=== PATIENT | female | born 1950 | race Caucasian/White ===

== ENCOUNTER → 2017-09-05 | Outpatient (CLI) | payer MEDICARE, BC ==
[2017-09-05 16:25] VITALS: BP 168/72; PULSE 72; RESP 16; TEMP 98.7; BMI 36.9
[2017-09-05 17:39] LABS: HCT 44.1 % (34.0-46.0); HGB 13.8 gm/dL (11.4-16.0); MCH 28.1 pg (25.0-35.0); MCHC 31.3 g/dL (31.0-37.0); Mean Platelet Volume 8.1; Platelet Count 182 k/uL (150-450); RDW 14.5 % (11.5-15.5)
[2017-09-05 17:53] LABS: ALT 52 U/L (9-52); AST 31 U/L (14-36); Albumin 4.7 g/dL (3.5-5.0); Alkaline Phosphatase 64 U/L (38-126); Anion Gap 12 mmol/L; Blood Urea Nitrogen 23 mg/dL (7-17); Calcium 9.6 mg/dL (8.4-10.2); Carbon Dioxide 27 mmol/L (22-30); Chloride 104 mmol/L (98-107); Cholesterol 145 mg/dL (<200); Glucose 98 mg/dL (74-99); HDL Cholesterol 50 mg/dL (40-60); LDL Cholesterol,Calculated 76 mg/dL (0-99); Potassium 4.2 mmol/L (3.5-5.1); Sodium 143 mmol/L (137-145); Total Bilirubin 0.5 mg/dL (0.2-1.3); Total Protein 7.4 g/dL (6.3-8.2); Triglycerides 97 mg/dL (<150)
[2017-09-06 01:18] LABS: Iron Saturation 15.5 (12.00-45.00)
[2017-09-06 01:26] LABS: Vitamin D 25 Hydroxy 44.4 ng/mL (30.0-100.0)
[2017-09-06 01:36] LABS: Folate, Serum 23.1 ng/mL
[2017-09-06 15:44] LABS: Hemoglobin A1C 6.5 % (4.0-6.0)
--- NOTE | 2017-10-22 22:24 | P.HPBAR ---
Bariatric H&P - History & Physicial H&P Date: 09/05/17 History & Physicial: Visit/CC: Bariatric evaluation Patient initial contact: Initial weight: Initial weight in pounds: Height: 5 ft 2 in Initial BMI: Last weight: Current weight: 91.626 kg Current weight in pounds: 202.00 Current BMI: 36.9 [place] body weight (based on NIH guidelines): 49.895 kg Excess body weight loss: The patient is a 67 year-old F who presents for Bariatric Assessment. DATE OF SERVICE: 09/05/2017 REASON FOR CONSULTATION: Initial bariatric evaluation. HISTORY OF PRESENT ILLNESS: Swati Sánchez is a 67-year-old female who comes in with morbid obesity. She has had diabetes for over 10 years. She comes in with problems of esophageal reflux disease. She has been enrolled medical supervised weight loss for over 7 consecutive months. She is looking into the gastric bypass to address her reflux including diabetes. No reports of upper endoscopy or chronic diarrhea. Incidentally, she is also due for colonoscopy with history of polyps. Last colonoscopy was 10 years ago. Her lowest weight was 192 pounds with weight loss. She has tried Weight Watchers back in 1980s and lost at least 40 pounds. She reports chronic constipation. No reports of Crohn's or ulcerative colitis in herself or her family. She denies any food ALLERGIES. She does report grandchildren who have wheat including milk ALLERGIES. No family personal history of stomach or esophageal cancer. She has rheumatoid arthritis in her sister. Separately, she reports having shortness sleep apnea. She denies any smoking. No personal family history of blood clots. She reports chronic panniculitis where she uses medicated powders with minimal improvement. Separately she also reports chronic lower back pain, hip pain as well as knee pain as a result for her morbid obesity. PAST MEDICAL HISTORY: 1. Morbid obesity. 2. Body mass index of 36.9. 3. Osteoarthritis of the knees. 4. Osteoarthritis of the hips. 5. Osteoarthritis of the lower back. 6. Obstructive sleep apnea. 7. Hypertensive heart disease. 8. Diabetes type 2. 9. Gastroesophageal reflux disease. 10. Hypothyroidism. 11. Anxiety. 12. Panniculitis. PAST SURGICAL HISTORY: 1. Cholecystectomy. 2. Hysterectomy. 3. Orthopedic surgery. 4. Tonsillectomy. 5. Bilateral carpal tunnel. 6. Bilateral plantar fasciitis. HOME MEDICATIONS: 1. Zanaflex. 2. Janumet. 3. Co-Q 10 4. Aldactone. 5. Crestor. 6. AcipHex. 7. Potassium. 8. Nystatin powder. 9. Multivitamin. 10. Synthroid. 11. Ativan. 12. Hydrocortisone cream. 13. Vitamin D. 14. Aspirin. 15. Vitamin C. ALLERGIES: 1. Doxycycline. 2. Diclofenac 3. Morphine. 4. Prednisone. 5. Misoprostol 6. Irbesartan. SOCIAL HISTORY: No active tobacco use. FAMILY HISTORY: No family history of ulcerative colitis disease or Crohn's disease. Family history of morbid obesity. No lupus in the family. No reports of stomach or esophageal cancer. Family history of diabetes type 2. REVIEW OF ORGAN SYSTEMS: CONSTITUTIONAL: At height of 5 feet 2 inches, his ideal body weight is 135 pounds. She comes in with 202 pounds. Body mass index is 36.9. He is 67 pounds overweight. HEENT: Denies any active troubles with vision or hearing. No troubles with swallowing. ENDOCRINE: Has diabetes. Has hypothyroidism. CARDIOVASCULAR: No reports of palpitations or heart attacks or chest pain. RESPIRATORY: Has daytime somnolence. No asthma. Has sleep apnea. GI: Denies any bright red blood per rectum. No diarrhea. Has constipation. MUSCULOSKELETAL: Has lower back pain and joint pain. Has osteoarthritis of the knees. History of bilateral lower extremity edema. NEURO: No headaches. No seizure disorders. PSYCH: No depression or suicidal ideation. Has anxiety. RHEUMATOLOGIC: No lupus. No rheumatoid arthritis. HEMATOLOGIC: Denies any abnormal bleeding or bruising. No personal history of DVTs. SKIN: No rash. No skin cancer. PHYSICAL EXAM: VITAL SIGNS: Height 5 foot 2 inches, weight 202 pounds. BMI 36.9 Vital Signs Temp 98.7 F 09/05/17 16:22 Pulse 72 09/05/17 16:22 Resp 16 09/05/17 16:22 BP 168/72 09/05/17 16:22 Pulse Ox GENERAL: Well-developed in no acute distress. HEENT: No scleral icterus. Extraocular movements grossly intact. Hears conversational speech. No nasal drainage. NECK: Supple without lymphadenopathy. CHEST: Nonlabored respirations with equal bilateral excursions. CARDIOVASCULAR: Regular rate and regular rhythm. Distal 2+ pulses. ABDOMEN: Obese, soft, nontender, nondistended. MUSCULOSKELETAL: No clubbing, cyanosis or edema. Gross strength 5/5 distal lower extremities. NEURO: No focal or lateralizing signs. Cranial nerves 2 through 12 grossly within normal limits. PSYCH: Appropriate affect. Alert and oriented to person, place and time. SKIN: Good skin turgor. Well perfused. ASSESSMENT: 1. Morbid obesity. 2. Body mass index of 36.9. 3. Osteoarthritis of the knees. 4. Osteoarthritis of the hips. 5. Osteoarthritis of the lower back. 6. Obstructive sleep apnea. 7. Hypertensive heart disease. 8. Diabetes type 2. 9. Gastroesophageal reflux disease. 10. Hypothyroidism. 11. Anxiety. 12. Panniculitis. PLAN: 1. Surgical options including a band, gastric bypass, sleeve gastrectomy were described in detail. Alternatives such as gastric balloon including duodenal switch were described. 2. The [place] bariatric surgical collaborative data and outcomes calculator were described with surgical options. 3. Recommend a bariatric metabolic panel to evaluate for micro- including macronutrient deficiencies. 4. For history of daytime somnolence, recommend evaluation and treatment for sleep apnea. 5. Dietary surveillance and counseling was reviewed, I have asked increased protein intake to at least 50 grams daily. 6. Will need cardiac risk assessment. 7. Recommend medical risk assessment. 8. Psych assessment per insurance guidelines. 9. Follow up upon completion of upper endoscopy. 10. Recommend 12-lead EKG with family history of hypertensive heart disease. 11. Recommend upper endoscopy. Thank you for this consultation. ADDENDUM: Laboratory Last Values WBC 7.0 k/uL (3.8-10.6) 09/05/17 17:09 RBC 4.90 m/uL (3.80-5.40) 09/05/17 17:09 Hgb 13.8 gm/dL (11.4-16.0) 09/05/17 17:09 Hct 44.1 % (34.0-46.0) 09/05/17 17:09 MCV 90.0 fL (80.0-100.0) 09/05/17 17:09 MCH 28.1 pg (25.0-35.0) 09/05/17 17:09 MCHC 31.3 g/dL (31.0-37.0) 09/05/17 17:09 RDW 14.5 % (11.5-15.5) 09/05/17 17:09 Plt Count 182 k/uL (150-450) 09/05/17 17:09 Sodium 143 mmol/L (137-145) 09/05/17 17:09 Potassium 4.2 mmol/L (3.5-5.1) 09/05/17 17:09 Chloride 104 mmol/L (98-107) 09/05/17 17:09 Carbon Dioxide 27 mmol/L (22-30) 09/05/17 17:09 Anion Gap 12 mmol/L 09/05/17 17:09 BUN 23 mg/dL (7-17) H 09/05/17 17:09 Creatinine 1.10 mg/dL (0.52-1.04) H 09/05/17 17:09 Est GFR (MDRD) Af Amer >60 (>60 ml/min/1.73 sqM) 09/05/17 17:09 Est GFR (MDRD) Non-Af 50 (>60 ml/min/1.73 sqM) 09/05/17 17:09 Glucose 98 mg/dL (74-99) 09/05/17 17:[address] Glu mg/dL 140 09/05/17 17:09 Hemoglobin A1c 6.5 % (4.0-6.0) H 09/05/17 17:09 Calcium 9.6 mg/dL (8.4-10.2) 09/05/17 17:09 Iron 53 ug/dL (50-170) 09/05/17 17:09 TIBC 342 ug/dL (228-460) 09/05/17 17:09 Iron Saturation 15.50 (12.00-45.00) 09/05/17 17:09 Ferritin 95.8 ng/mL (10.0-291.0) 09/05/17 17:09 Total Bilirubin 0.5 mg/dL (0.2-1.3) 09/05/17 17:09 AST 31 U/L (14-36) 09/05/17 17:09 ALT 52 U/L (9-52) 09/05/17 17:09 Alkaline Phosphatase 64 U/L (38-126) 09/05/17 17:09 Total Protein 7.4 g/dL (6.3-8.2) 09/05/17 17:09 Albumin 4.7 g/dL (3.5-5.0) 09/05/17 17:09 Triglycerides 97 mg/dL (<150) 09/05/17 17:09 Cholesterol 145 mg/dL (<200) 09/05/17 17:09 LDL Cholesterol, Calc 76 mg/dL (0-99) 09/05/17 17:09 HDL Cholesterol 50 mg/dL (40-60) 09/05/17 17:09 Vitamin B1 73 ug/L (38-122) 09/05/17 17:09 Vitamin B12 561.0 pg/mL (200.0-944.0) 09/05/17 17:09 Vitamin D 25-Hydroxy 44.4 ng/mL (30.0-100.0) 09/05/17 17:09 Folate 23.1 ng/mL 09/05/17 17:09 TSH 0.286 mIU/L (0.465-4.680) L 09/05/17 17:09 Past Medical History Past Medical History: Diabetes Mellitus, Hypertension, Sleep Apnea/CPAP/BIPAP, Thyroid Disorder Additional Past Medical History / Comment(s): arthritis History of Any Multi-Drug Resistant Organisms: None Reported Past Surgical History: Cholecystectomy, Hysterectomy, Orthopedic Surgery, Tonsillectomy Additional Past Surgical History / Comment(s): eileen carpal tunnel,. eileen foot plantar fascitis Past Anesthesia/Blood Transfusion Reactions: No Reported Reaction Smoking Status: Never smoker - Past Family History Mother Family Medical History: Thyroid Disorder Father Family Medical History: Diabetes Mellitus, Hypertension Additional Family Medical History / Comment(s): enlarged heart, [facility] [place] Surgical - Exam Vital Signs Temp Pulse Resp BP 98.7 F 72 16 168/72 09/05/17 16:22 09/05/17 16:22 09/05/17 16:22 09/05/17 16:22 Results - Labs 09/05/17 17:09 09/05/17 17:09 Bariatric Checklist Checklist: Plan: Checklist: EGD: 1. Hiatal hernia: 2. H. Pylori: HgbA1c: Vitamin D: Smoking: Never smoker Primary care physician referral: Avani Davila Psychiatry clearance: Cardiology clearance: Sleep study: Diet journal: VTE risk score: VTE risk level: Rehab needs at discharge:
== END | disposition home or self-care (01) ==
LOC: BARWHC3 15:49
PROVIDERS: ATTEND Surgery Plastic and Reconstructive Surgery
DX: Z48.815 Encounter for surgical aftercare following surgery on the digestive system (principal); E66.01 Morbid (severe) obesity due to excess calories; M17.0 Bilateral primary osteoarthritis of knee; M16.0 Bilateral primary osteoarthritis of hip; M47.816 Spondylosis without myelopathy or radiculopathy, lumbar region; G47.33 Obstructive sleep apnea (adult) (pediatric); I11.9 Hypertensive heart disease without heart failure; E11.9 Type 2 diabetes mellitus without complications; K21.9 Gastro-esophageal reflux disease without esophagitis; E03.9 Hypothyroidism, unspecified; F41.9 Anxiety disorder, unspecified; E89.1 Postprocedural hypoinsulinemia; D50.8 Other iron deficiency anemias; E44.0 Moderate protein-calorie malnutrition; E55.9 Vitamin D deficiency, unspecified; G47.30 Sleep apnea, unspecified; M79.3 Panniculitis, unspecified; Z68.36 Body mass index [BMI] 36.0-36.9, adult; Z88.1 Allergy status to other antibiotic agents; Z88.5 Allergy status to narcotic agent; Z88.8 Allergy status to other drugs, medicaments and biological substances; Z79.82 Long term (current) use of aspirin; Z79.51 Long term (current) use of inhaled steroids; Z79.899 Other long term (current) drug therapy; Z90.49 Acquired absence of other specified parts of digestive tract
CPT/HCPCS: 84425; 80061; 80053; 82607; 82728; 82746; 83540; 83550; 84443; 85027; 82306; 83036; 36415; G0463; 99211

== ENCOUNTER 2018-01-14 07:28 | Day surgery (SDC) | payer MEDICARE, BC ==
[2018-01-08 14:57] VITALS: BMI 33.6
[~2018-01-14 07:28] MED LIST: ALPRAZolam 0.5 MG TAB PO PRN; HEPARIN SODIUM,PORCINE 5,000 UNIT/ML 1 ML VIAL SQ ONE; LACTATED RINGERS 1,000 ML IV SCH; LIDOCAINE 1% 20 ML VIAL (10MG/ML) FOR IV START INTRADERMA PRN; MIDAZOLAM 2 MG/2 ML VIAL IV PRN; MORPHINE SULFATE 2 MG/ML SYRINGE IV PRN; ONDANSETRON ODT 4 MG TAB PO ONE; Pre Op ABX Message 1 EACH MISC MISCELLANE ONE; SCOPOLAMINE 1.5MG/72HR PATCH TRANSDERM ONE; fentaNYL (PF) 50 MCG/ML 2 ML AMP IV PRN
[2018-01-14] MEDS ORDERED: MORPHINE SULFATE 4 MG/0.8 ML SYRINGE (INJ) IV PRN (08:10)
[2018-01-14 08:37] LABS: Glucose,Whole Blood 122 mg/dL (75-99)
[2018-01-14 08:38] VITALS: RESP 16; TEMP 98.6
--- NOTE | 2018-01-14 08:38 | P.GSHP ---
History of Present Illness H&P Date: 01/14/18 Chief Complaint: Back lipoma This a 67-year-old female who presents today for excision of a back lipoma. Past Medical History Past Medical History: Diabetes Mellitus, Hypertension, Osteoarthritis (OA), Sleep Apnea/CPAP/BIPAP, Thyroid Disorder Additional Past Medical History / Comment(s): uses bpap machine History of Any Multi-Drug Resistant Organisms: None Reported Past Surgical History: Cholecystectomy, Hysterectomy, Orthopedic Surgery, Tonsillectomy Additional Past Surgical History / Comment(s): eileen carpal tunnel,. eileen foot plantar fascitis Past Anesthesia/Blood Transfusion Reactions: No Reported Reaction Smoking Status: Never smoker - Past Family History Mother Family Medical History: Thyroid Disorder Father Family Medical History: Diabetes Mellitus, Hypertension Additional Family Medical History / Comment(s): enlarged heart, Guillian [place]' Medications and Allergies Home Medications Medication Instructions Recorded Confirmed Type Ascorbic Acid [Vitamin C] 500 mg PO DAILY 09/05/17 01/08/18 History Aspirin [Adult Low Dose Aspirin EC] 81 mg PO DAILY 09/05/17 01/08/18 History Cholecalciferol (Vitamin D3) 2,000 unit PO DAILY 09/05/17 01/08/18 History [Vitamin D3] LORazepam [Ativan] 0.5 mg PO BID PRN 09/05/17 01/08/18 History Levothyroxine Sodium [Synthroid] 100 mcg PO DAILY 09/05/17 01/08/18 History Multivitamins, Thera [Multivitamin 1 tab PO DAILY 09/05/17 01/08/18 History (formulary)] RABEprazole SODIUM [Aciphex] 20 mg PO DAILY 09/05/17 01/08/18 History Rosuvastatin [Crestor] 10 mg PO DAILY 09/05/17 01/08/18 History Spironolactone [Aldactone] 12.5 mg PO DAILY 09/05/17 01/08/18 History Ubidecarenone [Co Q-10] 200 mg PO DAILY 09/05/17 01/08/18 History sitaGLIPtin PHOS/metFORMIN HCL 1 each PO DAILY 09/05/17 01/08/18 History [Janumet Xr 50-500 mg Tablet] L.acidoph,Paracasei, B.lactis 1 tab PO DAILY PRN 01/14/18 01/14/18 History [Probiotic] Allergies Allergy/AdvReac Type Severity Reaction Status Date / Time doxycycline Allergy Swelling Verified 01/14/18 08:09 irbesartan [From Avapro] Allergy Swelling Verified 01/14/18 08:09 diclofenac [From Arthrotec] AdvReac Swelling Verified 01/14/18 08:09 misoprostol [From Arthrotec] AdvReac Swelling Verified 01/14/18 08:09 morphine AdvReac Nausea & Verified 01/14/18 08:09 Vomiting prednisone AdvReac Rapid Verified 01/14/18 08:09 Heart Rate Surgical - Exam - General well developed, no distress - Eyes PERRL - ENT normal pinna - Neck no masses - Respiratory normal expansion - Cardiovascular Rhythm: regular - Abdomen Abdomen: soft, non tender - Integumentary 5 cm back lipoma located interrupted back near the patient's bra line Assessment and Plan Assessment: Back lipoma. We'll perform excision.
[2018-01-14] MEDS ORDERED: MIDAZOLAM 2 MG/2 ML VIAL ONE (09:02)
[2018-01-14] MEDS ORDERED: fentaNYL (PF) 50 MCG/ML 2 ML AMP ONE (09:02)
[2018-01-14] MEDS ORDERED: PROPOFOL 10 MG/ML 20 ML VIAL IV ONE (09:02)
[2018-01-14] MEDS ORDERED: BUPIVACAINE (PF) 0.25% 30 ML VIAL SQ ONE (09:16)
--- NOTE | 2018-01-14 09:40 | P.OP ---
Date of Procedure: 01/14/18 Preoperative Diagnosis: Back lipoma Postoperative Diagnosis: Back lipoma Procedure(s) Performed: Excision of back lipoma Anesthesia: MAC Surgeon: Helder Ferrara Estimated Blood Loss (ml): 5 Pathology: other (Back lipoma) Condition: stable Description of Procedure: Patient's placed on the operative table lateral position. She received IV sedation. Her back was prepped and draped usual sterile fashion. A skin incision was made over the lipoma after the skin was anesthetized 1% local Xylocaine. Using blunt and sharp dissection with cautery the lipoma was excised. The lipoma measured prostate 5 cm diameter. Lipoma was sent to pathology. This can was closed interrupted 3-0 Monocryl suture. Dermabond was applied.
[2018-01-14 10:10] VITALS: BP 137/73; PULSE 71
== END 2018-01-14 10:34 | disposition home or self-care (01) ==
LOC: OR 07:28
PROVIDERS: ATTEND Surgery
DX: D17.1 Benign lipomatous neoplasm of skin and subcutaneous tissue of trunk (principal); E11.9 Type 2 diabetes mellitus without complications; Z79.84 Long term (current) use of oral hypoglycemic drugs; I10 Essential (primary) hypertension; M19.90 Unspecified osteoarthritis, unspecified site; G47.33 Obstructive sleep apnea (adult) (pediatric); Z99.89 Dependence on other enabling machines and devices; E78.5 Hyperlipidemia, unspecified; E07.9 Disorder of thyroid, unspecified; Z79.82 Long term (current) use of aspirin; Z79.890 Hormone replacement therapy; Z79.899 Other long term (current) drug therapy; Z88.6 Allergy status to analgesic agent; Z88.1 Allergy status to other antibiotic agents; Z88.5 Allergy status to narcotic agent; Z88.8 Allergy status to other drugs, medicaments and biological substances
CPT/HCPCS: 88304; 11406; J2250; J1644; J3010; J2704

== ENCOUNTER → 2018-05-09 | Outpatient (CLI) | payer MEDICARE, BC ==
--- NOTE | 2018-05-14 12:34 | MM ---
Reason for exam: screening (asymptomatic). Last mammogram was performed 2 years and 7 months ago. History: Patient is postmenopausal. Took estrogen for 10 years. Physical Findings: A clinical breast exam by your physician is recommended on an annual basis and results should be correlated with mammographic findings. MG 3D Screening Mammo W/Cad Bilateral CC and MLO view(s) were taken. Technologist: Edilma Reddy RT (R)(M) Prior study comparison: October 20, 2015, bilateral MG screening mammo w CAD. September 11, 2013, [facility] DIGITAL LEFT BREAST MAMMOGRAM w/CAD. There are scattered fibroglandular densities. There are benign appearing vascular calcifications bilaterally. There is no discrete abnormality. ASSESSMENT: Benign, BI-RAD 2 RECOMMENDATION: Routine screening mammogram of both breasts in 1 year.
== END | disposition home or self-care (01) ==
LOC: RADMAMWWP 08:10
PROVIDERS: ATTEND Family Medicine
DX: Z12.31 Encounter for screening mammogram for malignant neoplasm of breast (principal)
CPT/HCPCS: 77063; 77067

== ENCOUNTER → 2018-10-01 | Outpatient (CLI) | payer MEDICARE, BC ==
--- NOTE | 2018-10-01 12:49 | CT ---
EXAMINATION TYPE: CT abdomen pelvis wo con DATE OF EXAM: 10/01/2018 COMPARISON: None INDICATION: Flank pain DLP: 951.2 mGycm, Automated exposure control for dose reduction was used. CONTRAST: 0 mL of Isovue 300. Study performed with Oral Contrast TECHNIQUE: Axial images were obtained from above the diaphragm to the pubic rami in the axial plane a t 5 mm thick sections. Reconstructed images are reviewed on the computer in the coronal plane. FINDINGS: Limited CT sections are obtained the lung bases. The lung bases are clear. CT ABDOMEN: Liver: Normal Spleen: Normal Pancreas: Normal Adrenal glands: The adrenal glands are normal. Gallbladder: Surgically absent Kidneys: No masses are evident. No hydronephrosis is present. No cysts are present. No renal stone s are identified. Aorta: Vascular calcification is within the aorta. Inferior vena cava: Normal. CT PELVIS: Loops of bowel within the abdomen and pelvis are normal. There are loops of bowel which are incom pletely distended or lack oral contrast limiting their evaluation. No suspicious adjacent inflammator y changes are evident. No dilated loops of bowel are evident. No wall thickening is evident. No fistu la formation is identified. Terminal ileum appears within normal limits. Appendix: Normal as visualized. Urinary bladder: Normal. Genitourinary structures: Uterus is not identified. Adnexal regions are clear. Osseous structures: No suspicious lytic or sclerotic lesions. Sacroiliac joint degenerative change an d facet hypertrophy is present. IMPRESSIONS: 1. No suspicious bowel abnormality. No changes suspicious no abnormality to account for left flank p ain.
== END | disposition home or self-care (01) ==
LOC: RADCTMAIN 06:49
PROVIDERS: ATTEND Family Medicine
DX: R10.9 Unspecified abdominal pain (principal)
CPT/HCPCS: 74176

== ENCOUNTER 2019-08-02 22:46 | Emergency (ER) | payer BC, MEDICARE ==
[2019-08-02 22:52] VITALS: RESP 20; TEMP 98.6
--- NOTE | 2019-08-02 23:10 | ED ---
General Adult HPI - General Chief complaint: Allergic Reaction Stated complaint: Allergic Reaction Time Seen by Provider: 08/02/19 22:53 Source: patient Mode of arrival: ambulatory Limitations: no limitations - History of Present Illness Initial comments: Dictation was produced using [employer] dictation software. please excuse any grammatical, word or spelling errors. Chief Complaint: 69-year-old female with allegedly multiple drug ALLERGIES presents with tingling in her oral area. History of Present Illness: 69-year-old female she was recently started on antibiotics for concerns of diverticulitis. She presents today with concerns of ALLERGIC reaction. She was started on ciprofloxacin and metronidazole prescribed by ancillary staff at her primary care physician's office. She was evaluated for multiple days of abdominal pain to the suprapubic area. Patient has any history of diverticulitis. She started antibiotics for concerns that symptoms may reflect diverticulitis. She has been on antibiotics for approxi mately 2 days. Today she noted that she was having tingling in the perioral area. She also feels like her mouth is smaller than it normally is. at bedside said there are some changes noted to her voice. Patient has no pain complaints. No rash. No changes in her abdominal pain. No nausea vomiting. No respiratory distress The ROS documented in this emergency department record has been reviewed and confirmed by me. Those systems with pertinent positive or negative responses have been documented in the HPI. All other systems are other negative and/or noncontributory. PHYSICAL EXAM: General Impression: Alert and oriented x3, not in acute distress HEENT: Normocephalic atraumatic, extra-ocular movements intact, pupils equal and reactive to light bilaterally, mucous membranes moist. Cardiovascular: Heart regular rate and rhythm, S1&S2 audible, no murmurs, rubs or gallops Chest: Lungs clear to auscultation bilaterally, no rhonchi, no wheeze, no rales Abdomen: Bowel sounds present, abdomen soft, mild tenderness to the suprapubic area. Musculoskeletal: Pulses present and equal in all extremities, no peripheral edema Motor: no focal deficits noted Neurological: CN II-XII grossly intact, no focal motor or sensory deficits noted Skin: Intact with no visualized rashes Psych: Normal affect and mood ED course 69-year-old female presents with perioral tingling after recently started antibiotics. As upon arrival are within acceptable limits. Patient is so has abdominal pain. Recommended to patient that she should be given ALLERGY medications however she refused stating that she has ALLERGIES to steroids. Laboratory evaluation obtained. No leukocytosis. CBC is unremarkable. Metabolic panel is negative. Lipase is 356. Computed tomography scan of the abdomen and pelvis does not demonstrate any diverticulitis. This point I do not feel patient needs to continue these antibiotics medications. Radiology reviewed film showing left adrenal adenoma, fatty for duration of the liver, diverticulosis without diverticulitis and umbilical hernia containing mesenteric fat only. Patient was notified of these results. Patient's symptoms may be due to umbilical hernia. She is well-appearing at bedside at this time. Patient is given referral to outpatient surgery. Told to follow-up for findings of umbilical hernia. Patient also notified that she should follow-up with her PCP for incidental findings seen on CT. Patient understandable agreeable to plan. Patient told to discontinue antibiotics at this time. Return parameters discussed. All questions answered. At time of discharge patient is medically stable she's not showing signs of respiratory distress. She denies any oral symptoms suggest possible severe ALLERGIC reaction. - Related Data Home Medications Medication Instructions Recorded Confirmed Ascorbic Acid [Vitamin C] 500 mg PO DAILY 09/05/17 01/08/18 Aspirin [Adult Low Dose Aspirin EC] 81 mg PO DAILY 09/05/17 01/08/18 Cholecalciferol (Vitamin D3) 2,000 unit PO DAILY 09/05/17 01/08/18 [Vitamin D3] LORazepam [Ativan] 0.5 mg PO BID PRN 09/05/17 01/08/18 Levothyroxine Sodium [Synthroid] 100 mcg PO DAILY 09/05/17 01/08/18 Multivitamins, Thera [Multivitamin 1 tab PO DAILY 09/05/17 01/08/18 (formulary)] RABEprazole SODIUM [Aciphex] 20 mg PO DAILY 09/05/17 01/08/18 Rosuvastatin [Crestor] 10 mg PO DAILY 09/05/17 01/08/18 Spironolactone [Aldactone] 12.5 mg PO DAILY 09/05/17 01/08/18 Ubidecarenone [Co Q-10] 200 mg PO DAILY 09/05/17 01/08/18 sitaGLIPtin PHOS/metFORMIN HCL 1 each PO DAILY 09/05/17 01/08/18 [Janumet Xr 50-500 mg Tablet] L.acidoph,Paracasei, B.lactis 1 tab PO DAILY PRN 01/14/18 01/14/18 [Probiotic] Allergies Allergy/AdvReac Type Severity Reaction Status Date / Time doxycycline Allergy Swelling Verified 08/02/19 22:52 irbesartan [From Avapro] Allergy Swelling Verified 08/02/19 22:52 diclofenac [From Arthrotec] AdvReac Swelling Verified 08/02/19 22:52 misoprostol [From Arthrotec] AdvReac Swelling Verified 08/02/19 22:52 morphine AdvReac Nausea & Verified 08/02/19 22:52 Vomiting prednisone AdvReac Rapid Verified 08/02/19 22:52 Heart Rate Review of Systems ROS Statement: Those systems with pertinent positive or pertinent negative responses have been documented in the HPI. ROS Other: All systems not noted in ROS Statement are negative. Past Medical History Past Medical History: Diabetes Mellitus, Hypertension, Osteoarthritis (OA), Sleep Apnea/CPAP/BIPAP, Thyroid Disorder Additional Past Medical History / Comment(s): uses bpap machine History of Any Multi-Drug Resistant Organisms: None Reported Past Surgical History: Cholecystectomy, Hysterectomy, Orthopedic Surgery, Ton sillectomy Additional Past Surgical History / Comment(s): eileen carpal tunnel,. eileen foot plantar fascitis Past Anesthesia/Blood Transfusion Reactions: No Reported Reaction Past Psychological History: Anxiety Smoking Status: Never smoker - Past Family History Mother Family Medical History: Thyroid Disorder Father Family Medical History: Diabetes Mellitus, Hypertension Additional Family Medical History / Comment(s): enlarged heart, Guillian [place]' General Exam Limitations: no limitations Course Vital Signs 08/02/19 08/02/19 08/03/19 22:49 23:16 00:54 Temperature 98.6 F Pulse Rate 65 74 Respiratory 20 20 20 Rate Blood Pressure 215/86 133/73 O2 Sat by Pulse 99 97 Oximetry Medical Decision Making - Lab Data Result diagrams: 08/02/19 23:12 08/02/19 23:12 Lab Results 08/02/19 08/02/19 Range/Units 23:12 23:12 WBC 6.0 (3.8-10.6) k/uL RBC 5.21 (3.80-5.40) m/uL Hgb 15.6 (11.4-16.0) gm/dL Hct 44.7 (34.0-46.0) % MCV 85.8 (80.0-100.0) fL MCH 29.9 (25.0-35.0) pg MCHC 34.8 (31.0-37.0) g/dL RDW 13.1 (11.5-15.5) % Plt Count 200 (150-450) k/uL Neutrophils % 55 % Lymphocytes % 30 % Monocytes % 9 % Eosinophils % 1 % Basophils % 1 % Neutrophils # 3.3 (1.3-7.7) k/uL Lymphocytes # 1.8 (1.0-4.8) k/uL Monocytes # 0.5 (0-1.0) k/uL Eosinophils # 0.1 (0-0.7) k/uL Basophils # 0.1 (0-0.2) k/uL Sodium 140 (137-145) mmol/L Potassium 4.5 (3.5-5.1) mmol/L Chloride 103 (98-107) mmol/L Carbon Dioxide 27 (22-30) mmol/L Anion Gap 10 mmol/L BUN 12 (7-17) mg/dL Creatinine 1.06 H (0.52-1.04) mg/dL Est GFR (CKD-EPI)AfAm 62 (>60 ml/min/1.73 sqM) Est GFR (CKD-EPI)NonAf 54 (>60 ml/min/1.73 sqM) Glucose 127 H (74-99) mg/dL Calcium 9.4 (8.4-10.2) mg/dL Total Bilirubin 0.5 (0.2-1.3) mg/dL AST 33 (14-36) U/L ALT 49 (9-52) U/L Alkaline Phosphatase 78 (38-126) U/L Total Protein 7.5 (6.3-8.2) g/dL Albumin 4.7 (3.5-5.0) g/dL Lipase 356 H (23-300) U/L Disposition Clinical Impression: Allergic reaction Disposition: HOME SELF-CARE Condition: Good Instructions (If sedation given, give patient instructions): Allergies (ED) Is patient prescribed a controlled substance at d/c from ED?: No Referrals: Yisel Davila DO [Primary Care Provider] - 1-2 days Boutt,Mani, MD [Medical Doctor] - 1-2 days Time of Disposition: 01:30
[2019-08-02 23:19] LABS: Basophils # (A) 0.1 k/uL (0-0.2); Basophils % (A) 1 %; Eosinophils # (A) 0.1 k/uL (0-0.7); Eosinophils % (A) 1 %; HCT 44.7 % (34.0-46.0); HGB 15.6 gm/dL (11.4-16.0); Lymphocytes # (A) 1.8 k/uL (1.0-4.8); Lymphocytes % (A) 30 %; MCH 29.9 pg (25.0-35.0); MCHC 34.8 g/dL (31.0-37.0); MCV 85.8 fL (80.0-100.0); Mean Platelet Volume 6.7; Monocytes # (A) 0.5 k/uL (0-1.0); Monocytes % (A) 9 %; Neutrophils # (A) 3.3 k/uL (1.3-7.7); Neutrophils % (A) 55 %; Platelet Count 200 k/uL (150-450); RBC 5.21 m/uL (3.80-5.40); RDW 13.1 % (11.5-15.5)
[2019-08-02 23:31] LABS: Albumin 4.7 g/dL (3.5-5.0); Calcium 9.4 mg/dL (8.4-10.2); Potassium 4.5 mmol/L (3.5-5.1); Total Bilirubin 0.5 mg/dL (0.2-1.3); Total Protein 7.5 g/dL (6.3-8.2)
[2019-08-03 00:55] VITALS: BP 133/73; PULSE 74
--- NOTE | 2019-08-03 01:17 | CT ---
EXAM: CT Abdomen and Pelvis With Intravenous Contrast CLINICAL HISTORY: Abdominal and pelvic pain. Evaluate for diverticulitis. TECHNIQUE: Axial computed tomography images of the abdomen and pelvis with intravenous contrast. CTDI is 13.3 mGy and DLP is 479.8 mGy-cm. This CT exam was performed using one or more of the following dose reduction techniques: automated exposure control, adjustment of the mA and/or kV according to patient size, and/or use of iterative reconstruction technique. COMPARISON: 10/01/2018. FINDINGS: Lung bases: Minimal subsegmental atelectasis is noted posteriorly at the lung bases. Mediastinum: Small hiatal hernia. ABDOMEN: Liver: Mild fatty infiltration of the liver. The liver and spleen enhance uniformly. Gallbladder and bile ducts: The patient is status post cholecystectomy. No ductal dilation. Pancreas: See below. Spleen: See above. Adrenals: The right adrenal gland, the head, body, tail of the pancreas are within normal limits. A 1 cm probable left adrenal adenoma is noted. Kidneys and ureters: Both kidneys are shown excrete contrast bilaterally. Small bilateral extra renal pelves are noted. No significant stranding about the perinephric spaces. No hydronephrosis. Stomach and bowel: Mild sigmoid diverticulosis without radioed graphic evidence of diverticulitis. Ischio rectal fat is clean. Mild to moderate quantity of stool throughout the colon. No evidence of bowel obstruction. PELVIS: Appendix: The appendix is best seen on series 202 image 61 and is unremarkable. Bladder: The bladder is unremarkable. Reproductive: The patient is status post hysterectomy. ABDOMEN and PELVIS: Intraperitoneal space: Pelvic phleboliths are noted. No free air. Bones/joints: Visualized ribs are unremarkable. Mild to moderate degenerative disc disease of the spinal column is noted. Mild osteoarthritic changes about the sacroiliac joints. There is grade 1 anterolisthesis of L4 upon L5 vertebral body. No spondylolysis. No acute fracture. No dislocation. Soft tissues: 2 x 1.3 cm umbilical hernia containing mesenteric fat only. Vasculature: Atherosclerotic disease of the abdominal aorta is noted extending to the common iliac arteries, without aneurysmal dilatation. Lymph nodes: No pelvic or inguinal lymphadenopathy. IMPRESSION: Probable left adrenal adenoma. Fatty infiltration of the liver. Status post cholecystectomy. No renal calculus or hydronephrosis. The appendix is unremarkable. Mild diverticulosis without diverticulitis. Status post hysterectomy. No evidence of bowel obstruction. Umbilical hernia containing mesenteric fat only.
== END 2019-08-03 01:38 | disposition home or self-care (01) ==
LOC: EC 22:46
DX: R20.2 Paresthesia of skin (principal); T36.8X5A Adverse effect of other systemic antibiotics, initial encounter; D35.02 Benign neoplasm of left adrenal gland; K76.0 Fatty (change of) liver, not elsewhere classified; K57.90 Diverticulosis of intestine, part unspecified, without perforation or abscess without bleeding; K42.9 Umbilical hernia without obstruction or gangrene; R10.30 Lower abdominal pain, unspecified; E11.9 Type 2 diabetes mellitus without complications; I10 Essential (primary) hypertension; M19.90 Unspecified osteoarthritis, unspecified site; G47.30 Sleep apnea, unspecified; E07.9 Disorder of thyroid, unspecified; Z88.1 Allergy status to other antibiotic agents; Z88.5 Allergy status to narcotic agent; Z88.6 Allergy status to analgesic agent; Z88.8 Allergy status to other drugs, medicaments and biological substances; Z79.82 Long term (current) use of aspirin; Z79.84 Long term (current) use of oral hypoglycemic drugs; Z79.890 Hormone replacement therapy; Z79.899 Other long term (current) drug therapy; Z90.49 Acquired absence of other specified parts of digestive tract; Z99.89 Dependence on other enabling machines and devices
CPT/HCPCS: 36415; 80053; 83690; 85025; 74177; 99284; Q9967

== ENCOUNTER → 2019-10-14 | Outpatient (CLI) | payer MEDICARE ==
[~2019-10-14] MED LIST changes: -ALPRAZolam 0.5 MG TAB PO PRN; -HEPARIN SODIUM,PORCINE 5,000 UNIT/ML 1 ML VIAL SQ ONE; -LACTATED RINGERS 1,000 ML IV SCH; -LIDOCAINE 1% 20 ML VIAL (10MG/ML) FOR IV START INTRADERMA PRN; -MIDAZOLAM 2 MG/2 ML VIAL IV PRN; -MORPHINE SULFATE 2 MG/ML SYRINGE IV PRN; -ONDANSETRON ODT 4 MG TAB PO ONE; -Pre Op ABX Message 1 EACH MISC MISCELLANE ONE; +REGADENOSON 0.4 MG/5 ML SYRINGE IV ONE; -SCOPOLAMINE 1.5MG/72HR PATCH TRANSDERM ONE; -fentaNYL (PF) 50 MCG/ML 2 ML AMP IV PRN
--- NOTE | 2019-10-14 11:39 | NM ---
EXAMINATION TYPE: NM stress cardiolite complete DATE OF EXAM: 10/14/2019 COMPARISON: NONE HISTORY: History of diabetes and hypercholesterolemia with palpitations and hypertension per order. TECHNIQUE: After the intravenous administration of 10.4 mCi Tc 99m Sestamibi - Rest images obtained 55 minutes post injection. The patient exercised using a PARRIS protocol and 1 minute prior to peak exercise was injected with 26.9 mCi Tc 99m Sestamibi - Stress images obtained 50 minutes post injecti on. FINDINGS: Targeted heart rate was achieved during performance of the study. Review of stress and rest SPECT lidia ges demonstrates area of diminished uptake on stress images versus rest images lateral segment toward s the apex seen best on horizontal long axis views in which area of acute ischemia cannot be excluded . Gated analysis shows normal wall motion with an estimated left ventricular ejection fraction of 68 %. IMPRESSION: Suspicious area lateral segment towards apex distal circumflex distribution in which acut e ischemia cannot be excluded. Need to follow-up by direct catheter angiogram should be based on clin ical correlation.
--- NOTE | 2019-10-14 13:38 | EST ---
EXERCISE STRESS DATE OF SERVICE: 10/14/2019 AGE: 69 SEX: Female HT: 63 WT: 200 PROTOCOL: Lexiscan Cardiolite STAGE: DURATION OF EXERCISE: HEART RATE REST: 74 BLOOD PRESSURE REST: 164/66 MAXIMUM HEART RATE ACHIEVED: 86 MAXIMUM BLOOD PRESSURE: 163/64 85% MPHR: 128 100% MPHR: 151 METS: INDICATIONS: Hypertension. CLINICAL INFORMATION: A Lexiscan nuclear study was performed. Peak heart rate of 86 was achieved. Maximum blood pressure of 163/64 mmHg was noted. Resting EKG shows normal sinus rhythm with normal [place] interval and QRS duration and normal ST-T waves. No ST-segment depression suggestive of ischemia is noted. The results of the nuclear study will follow. MMODL / IJN: [id number] /
== END | disposition home or self-care (01) ==
LOC: RADNMMAIN 07:42
PROVIDERS: ATTEND Family Medicine
DX: I10 Essential (primary) hypertension (principal)
CPT/HCPCS: 93017; 78452; A9500

== ENCOUNTER 2019-10-29 08:44 | Day surgery (SDC) | payer MEDICARE ==
[2019-10-24 11:13] VITALS: BMI 35.4
[~2019-10-29 08:44] MED LIST changes: +LACTATED RINGERS 1,000 ML IV SCH; +LIDOCAINE 1% 20 ML VIAL (10MG/ML) FOR IV START INTRADERMA PRN; -REGADENOSON 0.4 MG/5 ML SYRINGE IV ONE
--- NOTE | 2019-10-29 09:07 | P.GSHP ---
History of Present Illness H&P Date: 10/29/19 CHIEF COMPLAINT: GERD HISTORY OF PRESENT ILLNESS: The patient is a 69-year-old female who presents reports gastroesophageal reflux disease. Upper endoscopy was offered for further evaluation and management. PAST MEDICAL HISTORY: Please see list. PAST SURGICAL HISTORY: Please see list. MEDICATIONS: Please see list. ALLERGIES: Please see list. SOCIAL HISTORY: No illicit drug use FAMILY HISTORY: No reports of Crohn disease or ulcerative colitis. REVIEW OF ORGAN SYSTEMS: CONSTITUTIONAL: No reports of fevers or chills. GI: Denies any blood in stools or constipation. PHYSICAL EXAM: VITAL SIGNS: Stable GENERAL: Well-developed and pleasant in no acute distress. HEENT: No scleral icterus. Extraocular movements grossly intact. Moist buccal mucosa. NECK: Supple without lymphadenopathy. CHEST: Unlabored respirations. Equal bilateral excursions. CARDIOVASCULAR: Regular rate and rhythm. Distal 2+ pulses. ABDOMEN: Soft, nondistended. MUSCULOSKELETAL: No clubbing, cyanosis, or edema. ASSESSMENT: 1. Gastroesophageal reflux disease PLAN: 1. Recommend proceeding with an upper endoscopy Past Medical History Past Medical History: Diabetes Mellitus, Hypertension, Osteoarthritis (OA), Sleep Apnea/CPAP/BIPAP, Thyroid Disorder Additional Past Medical History / Comment(s): uses bpap machine, recent stomach pain. History of Any Multi-Drug Resistant Organisms: None Reported Past Surgical History: Cholecystectomy, Hysterectomy, Orthopedic Surgery, Tonsillectomy Additional Past Surgical History / Comment(s): eileen carpal tunnel,. eileen foot plantar fasciitis, colonoscopy. Past Anesthesia/Blood Transfusion Reactions: No Reported Reaction Smoking Status: Never smoker - Past Family History Mother Family Medical History: Thyroid Disorder Father Family Medical History: Diabetes Mellitus, Hypertension Additional Family Medical History / Comment(s): enlarged heart, Guillian Rochester' Medications and Allergies Home Medications Medication Instructions Recorded Confirmed Type Ascorbic Acid [Vitamin C] 500 mg PO DAILY 09/05/17 10/24/19 History Aspirin [Adult Low Dose Aspirin EC] 81 mg PO DAILY 09/05/17 10/24/19 History Cholecalciferol (Vitamin D3) 2,000 unit PO DAILY 09/05/17 10/24/19 History [Vitamin D3] LORazepam [Ativan] 0.5 mg PO BID PRN 09/05/17 10/24/19 History Levothyroxine Sodium [Synthroid] 100 mcg PO DAILY 09/05/17 10/24/19 History Multivitamins, Thera [Multivitamin 1 tab PO DAILY 09/05/17 10/24/19 History (formulary)] RABEprazole SODIUM [Aciphex] 20 mg PO DAILY 09/05/17 10/24/19 History Rosuvastatin [Crestor] 10 mg PO Q14D 09/05/17 10/24/19 History Spironolactone [Aldactone] 75 mg PO DAILY 09/05/17 10/24/19 History Ubidecarenone [Co Q-10] 200 mg PO DAILY 09/05/17 10/24/19 History sitaGLIPtin PHOS/metFORMIN HCL 1 each PO DAILY 09/05/17 10/24/19 History [Janumet Xr 50-500 mg Tablet] L.acidoph,Paracasei, B.lactis 1 tab PO DAILY PRN 01/14/18 10/24/19 History [Probiotic] Bisoprolol Fumarate [Zebeta] 5 mg PO DAILY 10/24/19 10/24/19 History Cyclobenzaprine [Flexeril] 5 mg PO HS 10/24/19 10/24/19 History Ranitidine HCl [Zantac] 300 mg PO HS 10/24/19 10/24/19 History amLODIPine BESYLATE 5 mg PO DAILY 10/24/19 10/24/19 History Allergies Allergy/AdvReac Type Severity Reaction Status Date / Time doxycycline Allergy Swelling Verified 10/24/19 10:49 irbesartan [From Avapro] Allergy Swelling Verified 10/24/19 10:49 adhesive tape AdvReac Rash/Hives Verified 10/24/19 11:26 diclofenac [From Arthrotec] AdvReac Swelling Verified 10/24/19 10:49 misoprostol [From Arthrotec] AdvReac Swelling Verified 10/24/19 10:49 morphine AdvReac Nausea & Verified 10/24/19 10:49 Vomiting prednisone AdvReac Rapid Verified 10/24/19 10:49 Heart Rate
[2019-10-29 09:22] VITALS: TEMP 97.8
[2019-10-29 09:25] LABS: Glucose,Whole Blood 169 mg/dL (75-99)
[2019-10-29] MEDS ORDERED: PROPOFOL 10 MG/ML 20 ML VIAL IV ONE (09:44)
--- NOTE | 2019-10-29 10:00 | P.PCN ---
Date of Procedure: 10/29/19 Description of Procedure: PREOPERATIVE DIAGNOSIS: Gastroesophageal reflux disease. Morbid obesity. POSTOPERATIVE DIAGNOSIS: Morbid obesity. Gastritis. Gastroesophageal reflux disease. 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 INDICATIONS: The patient is a 69-year-old female who presents with a history of reflux disease. Benefits and risks of the procedure were described. Informed consent was obtained. DESCRIPTION: The patient was brought into the endoscopy suite and laid in the left lateral decubitus position. An Olympus gastroscope was passed along the posterior oropharynx down to the distal esophagus where the squamocolumnar junction was encountered at 30 cm from the incisors. The stomach was entered and no bile reflux was found. Additional findings are listed below. Biopsies with cold forceps were obtained of the antrum. The first through third portion of the duodenum was examined and unremarkable. Retroflexion of the scope confirmed Hill grade 3 lower esophageal valve. The squamocolumnar junction demonstrated LA grade D erosive esophagitis. The stomach was desufflated. The patient tolerated the procedure well. FINDINGS: Squamocolumnar junction 30 cm from the incisors. Diaphragmatic hiatus at 35 cm. Hiatal hernia, 5 cm, sliding type Hill grade 3 lower esophageal valve. LA grade D erosive esophagitis biopsies obtained and GE junction No active duodenitis. Chronic gastritis RECOMMENDATIONS: Upper endoscopy as needed. Plan - Discharge Summary Discharge Rx Participant: No New Discharge Prescriptions: Continue Spironolactone [Aldactone] 75 mg PO DAILY sitaGLIPtin PHOS/metFORMIN HCL [Janumet Xr 50-500 mg Tablet] 1 each PO DAILY Multivitamins, Thera [Multivitamin (formulary)] 1 tab PO DAILY Ubidecarenone [Co Q-10] 200 mg PO DAILY Rosuvastatin [Crestor] 10 mg PO Q14D RABEprazole SODIUM [Aciphex] 20 mg PO DAILY Levothyroxine Sodium [Synthroid] 100 mcg PO DAILY Cholecalciferol (Vitamin D3) [Vitamin D3] 2,000 unit PO DAILY Aspirin [Adult Low Dose Aspirin EC] 81 mg PO DAILY Ascorbic Acid [Vitamin C] 500 mg PO DAILY LORazepam [Ativan] 0.5 mg PO BID PRN PRN Reason: Anxiety L.acidoph,Paracasei, B.lactis [Probiotic] 1 tab PO DAILY PRN PRN Reason: Bloating Ranitidine HCl [Zantac] 300 mg PO HS amLODIPine BESYLATE 5 mg PO DAILY Bisoprolol Fumarate [Zebeta] 5 mg PO DAILY Cyclobenzaprine [Flexeril] 5 mg PO HS Discharge Medication List Ascorbic Acid [Vitamin C] 500 mg PO DAILY 09/05/17 [History] Aspirin [Adult Low Dose Aspirin EC] 81 mg PO DAILY 09/05/17 [History] Cholecalciferol (Vitamin D3) [Vitamin D3] 2,000 unit PO DAILY 09/05/17 [History] LORazepam [Ativan] 0.5 mg PO BID PRN 09/05/17 [History] Levothyroxine Sodium [Synthroid] 100 mcg PO DAILY 09/05/17 [History] Multivitamins, Thera [Multivitamin (formulary)] 1 tab PO DAILY 09/05/17 [History] RABEprazole SODIUM [Aciphex] 20 mg PO DAILY 09/05/17 [History] Rosuvastatin [Crestor] 10 mg PO Q14D 09/05/17 [History] Spironolactone [Aldactone] 75 mg PO DAILY 09/05/17 [History] Ubidecarenone [Co Q-10] 200 mg PO DAILY 09/05/17 [History] sitaGLIPtin PHOS/metFORMIN HCL [Janumet Xr 50-500 mg Tablet] 1 each PO DAILY 09/05/17 [History] L.acidoph,Paracasei, B.lactis [Probiotic] 1 tab PO DAILY PRN 01/14/18 [History] Bisoprolol Fumarate [Zebeta] 5 mg PO DAILY 10/24/19 [History] Cyclobenzaprine [Flexeril] 5 mg PO HS 10/24/19 [History] Ranitidine HCl [Zantac] 300 mg PO HS 10/24/19 [History] amLODIPine BESYLATE 5 mg PO DAILY 10/24/19 [History] Follow up Appointment(s)/Referral(s): Lindsey Wiley MD [STAFF PHYSICIAN] - 11/11/19 Patient Instructions/Handouts: Hiatal Hernia (DC) Discharge Disposition: HOME SELF-CARE
[2019-10-29 10:04] VITALS: PULSE 61
[2019-10-29 10:20] VITALS: BP 127/67; RESP 16
== END 2019-10-29 10:32 | disposition home or self-care (01) ==
LOC: ORWHC2ENDO 08:44
PROVIDERS: ATTEND Surgery Plastic and Reconstructive Surgery
DX: K29.50 Unspecified chronic gastritis without bleeding (principal); K22.70 Barrett's esophagus without dysplasia; K21.9 Gastro-esophageal reflux disease without esophagitis; E66.01 Morbid (severe) obesity due to excess calories; Z68.36 Body mass index [BMI] 36.0-36.9, adult; I10 Essential (primary) hypertension; E11.9 Type 2 diabetes mellitus without complications; M19.90 Unspecified osteoarthritis, unspecified site; G47.33 Obstructive sleep apnea (adult) (pediatric); Z99.89 Dependence on other enabling machines and devices; E07.9 Disorder of thyroid, unspecified; Z90.49 Acquired absence of other specified parts of digestive tract; Z90.710 Acquired absence of both cervix and uterus; Z98.890 Other specified postprocedural states; Z83.49 Family history of other endocrine, nutritional and metabolic diseases; Z83.3 Family history of diabetes mellitus; Z82.49 Family history of ischemic heart disease and other diseases of the circulatory system; Z83.2 Family history of diseases of the blood and blood-forming organs and certain disorders involving the immune mechanism; Z97.2 Presence of dental prosthetic device (complete) (partial); Z79.84 Long term (current) use of oral hypoglycemic drugs; Z79.82 Long term (current) use of aspirin; Z79.890 Hormone replacement therapy; Z79.899 Other long term (current) drug therapy; Z88.1 Allergy status to other antibiotic agents; Z88.5 Allergy status to narcotic agent; Z88.8 Allergy status to other drugs, medicaments and biological substances; Z91.09 Other allergy status, other than to drugs and biological substances
CPT/HCPCS: 88305; 43239; J2704

== ENCOUNTER → 2019-11-10 | Outpatient (CLI) | payer MEDICARE ==
[2019-11-10 10:45] LABS: HCT 41.6 % (34.0-46.0); HGB 13.7 gm/dL (11.4-16.0); MCH 29.4 pg (25.0-35.0); MCHC 32.9 g/dL (31.0-37.0); MCV 89.3 fL (80.0-100.0); Platelet Count 204 k/uL (150-450); RBC 4.66 m/uL (3.80-5.40); RDW 13.2 % (11.5-15.5); WBC 6.2 k/uL (3.8-10.6)
[2019-11-10 11:09] LABS: Potassium 5.4 mmol/L (3.5-5.1)
== END | disposition home or self-care (01) ==
LOC: LABPAT 10:04
PROVIDERS: ATTEND Internal Medicine Cardiovascular Disease
DX: Z01.812 Encounter for preprocedural laboratory examination (principal); R94.39 Abnormal result of other cardiovascular function study
CPT/HCPCS: 80051; 82565; 84520; 85027

== ENCOUNTER 2019-11-14 06:08 | Day surgery (SDC) | payer MEDICARE ==
[2019-11-11 12:05] VITALS: BMI 35.4
[~2019-11-14 06:08] MED LIST changes: +ALPRAZolam 0.25 MG TAB PO PRN; +ALPRAZolam 0.5 MG TAB PO PRN; +ASPIRIN 325 MG TAB PO STA; +ATORVASTATIN 80 MG TAB PO STA; -LACTATED RINGERS 1,000 ML IV SCH; -LIDOCAINE 1% 20 ML VIAL (10MG/ML) FOR IV START INTRADERMA PRN; +NITROGLYCERIN SL TABS 0.4 MG TAB SUBLINGUAL PRN; +SODIUM CHLORIDE 0.9% 1,000 ML in EMPTY BAG 1 BAG IV ONE
[2019-11-14] MEDS ORDERED: SODIUM CHLORIDE 0.9% 1,000 ML IV ONE (06:25)
[2019-11-14 06:54] LABS: Glucose,Whole Blood 163 mg/dL (75-99)
[2019-11-14] MEDS ORDERED: LIDOCAINE 1% INJ 10MG/ML (20 ML MDV) ONE (07:07)
[2019-11-14] MEDS: fentaNYL (PF) 50 MCG/ML 2 ML AMP IV ONE ×2 (07:15→07:53)
[2019-11-14] MEDS: MIDAZOLAM 2 MG/2 ML VIAL IVP ONE ×2 (07:15→07:22)
[2019-11-14] MEDS ORDERED: fentaNYL (PF) 50 MCG/ML 2 ML AMP ONE (07:15)
[2019-11-14] MEDS ORDERED: LIDOCAINE 1% INJ 10MG/ML (20 ML MDV) SQ ONE (07:17)
[2019-11-14] MEDS ORDERED: BIVALIRUDIN BOLUS 250 MG/50 ML IV ONE (07:47)
[2019-11-14] MEDS ORDERED: BIVALIRUDIN 250 MG in SODIUM CHLORIDE 0.9% 50 ML IV ONE (07:48)
[2019-11-14] MEDS ORDERED: TICAGRELOR 90 MG TAB ONE (07:49)
[2019-11-14] MEDS ORDERED: MIDAZOLAM 2 MG/2 ML VIAL IVP ONE (07:52)
[2019-11-14] MEDS ORDERED: TICAGRELOR 90 MG TAB PO ONE (07:52)
--- NOTE | 2019-11-14 07:55 | CC ---
CARDIAC CATHETERIZATION REPORT INDICATION: This is a 69-year-old lady with history of hypertension and diabetes, who presented to Dr. Mays with symptoms of exertional shortness of breath suggestive of unstable angina with an abnormal nuclear scan showing lateral wall ischemia. The patient was advised cardiac catheterization. I have been asked to perform the same. PROCEDURE NOTE: After obtaining informed consent, left heart catheterization and coronary angiogram are performed via the right femoral artery using standard Juan Manuel catheters. The patient tolerated the procedure well without any obvious immediate complications. Patient received moderate conscious sedation. Total sedation time was 17 minutes. FINDINGS: 1. HEMODYNAMICS: Left ventricular end-diastolic pressure is 12 mm. There is no significant gradient across the aortic valve. 2. LEFT VENTRICULOGRAM: Left ventriculogram is not performed. 3. ANGIOGRAPHIC DATA: Left Main Coronary Artery: Left main coronary artery is a normal-sized vessel and is free of stenosis. Divides into left anterior descending coronary artery and circumflex coronary artery. Circumflex coronary artery is a nondominant vessel and is free of significant stenosis. LAD is a large vessel that reaches the apex of the heart. There is a 70% to 80% stenosis in its midportion. It gives off a diagonal branch. The second diagonal branch has a lesion in the ostial portion which seems to be 70% to 80%. Right coronary artery is a large dominant vessel. The PLV has a focal 70% stenosis. CONCLUSIONS: Two-vessel coronary artery disease as described above. PLAN: I reviewed angiographic data with the patient and talked about angioplasty with stent of LAD and PLV. I am going to have Dr. Qureshi the on-call supervisor kosher dietary service perform this. MMODL / IJN: [id number] /
[2019-11-14] MEDS ORDERED: NITROGLYCERIN 1000MCG/10ML SYRINGE INTRACORON ONE (07:56)
--- NOTE | 2019-11-14 08:01 | LTR ---
November 14, 2019 Re: Swati Sánchez Dear Yisel: I performed cardiac catheterization on Swati Sánchez. A detailed catheterization note is enclosed for your records. In brief, the cardiac catheterization revealed significant two-vessel disease and she will undergo angioplasty of the same. Thank you for giving me the privilege to participate in the care of this pleasant lady. Sincerely, MD SHEREE Ramos / ISATUN: [id number] /
[2019-11-14] MEDS ORDERED: IOPAMIDOL-370 125ML BTL INJ ONE (08:03)
[2019-11-14] MEDS ORDERED: IOPAMIDOL-370 100ML BTL INJ ONE (08:14)
[2019-11-14] MEDS ORDERED: LORazepam 0.5 MG TAB PO PRN (08:18)
[2019-11-14] MEDS ORDERED: LACTOBACILLUS ACIDOPH & BULGAR 1 EACH PACKET PO PRN (08:18)
[2019-11-14] MEDS ORDERED: SODIUM CHLORIDE 0.9% 1,000 ML in EMPTY BAG 1 BAG IV SCH (08:30)
--- NOTE | 2019-11-14 08:46 | LTR ---
DATE OF SERVICE: 11/14/2019 RE: Gonzalo Swatihumble Davila; Swati Sánchez underwent today a heart catheterization by Dr. Ziegler and was found to have critical disease involving the LAD and RCA. I did perform successful stenting of both lesions with an excellent angiographic result and without any complication. I want to thank you for allowing us to participate in her care and please do not hesitate to call if you have any question or concern. Sincerely, Orville Qureshi MD MMDANIELLAL / ISATUN: [id number] /
--- NOTE | 2019-11-14 08:55 | PTCA ---
PERCUTANEOUSTRANS CORORONARY ANGIOGRAPHY DATE OF SERVICE: 11/14/2019 PERFORMING PHYSICIAN: Orville Qureshi MD. PROCEDURE PERFORMED: 1. Successful stenting of the mid left anterior descending artery using 2.5 x 28 mm Xience ALYSSA with an excellent angiographic results. 2. Successful stenting of the PLV branch of the right coronary artery using 2.0 x 12 mm Jailene ALYSSA with an excellent angiographic results. 3. Successful stenting of the mid right coronary artery using a 3.5 x 18 mm Xience ALYSSA with an excellent angiographic results. INDICATION: This is a 69-year-old female patient with who sees Dr. Ziegler in the office as an outpatient with hypertension and dyslipidemia who was experiencing symptoms of chest discomfort and underwent a stress test and that revealed lateral ischemia. She underwent a heart catheterization by Dr. Ziegler and was found to have critical disease involving the PLV branch of the RCA as well as severe disease involving the mid RCA as well as critical disease involving the LAD in the midportion. APPROACH: Right common femoral artery. COMPLICATION: None. LEVEL OF SEDATION: Moderate with sedation length of 32 minutes. PROCEDURE DESCRIPTION: Please refer to the diagnostic heart catheterization that was performed by Dr. Ziegler earlier today. Anticoagulation was initiated using Angiomax. Subsequently I did engage the left main using JL3.5 guide. The LAD was wired using a whisper wire. After that I did PTCA ballooning of the mid LAD using 2.5 x 12 mm balloon before I deployed 2.5 x 28 mm Xience ALYSSA where the stent was positioned under fluoroscopy guidance and deployed under 18 atmospheres for 20 seconds with the following angiogram showing excellent angiographic results. Subsequently, I did engage the right coronary artery using JR4 guide. I did wire the RCA and then the PLV branch of the RCA using a whisper wire. After that I did direct stenting of both lesions, the one in the PLV branch as well as in the mid RCA. For the lesion in the PLV branch of the RCA I deployed 2.0 x 12 mm jailene which was positioned under fluoroscopy guidance and deployed under 14 atmospheres for 20 seconds. For the one in the mid RCA, I did direct stenting using 3.5 x 18 mm Xience ALYSSA which was positioned under fluoroscopy guidance and deployed under 18 atmospheres for 20 seconds. The final angiogram showed excellent angiographic results and the procedure was completed without any complication. POSTPROCEDURE MANAGEMENT: 1. Dual anti-platelet therapy. 2. Risk factor modifications. 3. Follow up with the patient. MMODL / IJN: [id number] /
[2019-11-14] MEDS ORDERED: NON FORMULARY DRUG (Ubidecarenone [Co Q-10] 200 MG) PO SCH (09:00)
[2019-11-14] MEDS ORDERED: HYDROmorphone 0.5 MG/0.5 ML SYRINGE IVP STA ×2 (14:16→21:22)
--- NOTE | 2019-11-14 15:20 | US ---
EXAMINATION TYPE: US lower ext pseudo artery RT DATE OF EXAM: 11/14/2019 COMPARISON: NONE CLINICAL HISTORY: r/o psuedoanuerysm. Recent heart cath EXAM PERFORMED: Grayscale and color Doppler duplex imaging performed of the groin, post cardiac kinga ter to assess for pseudoaneurysm. SIDE PERFORMED: Right Color and Waveform Doppler performed to assess for the presence of pseudoaneurysm; Difficult and limited study due to patient body habitus Is there ultrasound evidence of a pseudoaneurysm: no Is there evidence of AV shunting: no Is there a fluid collection present: 1.5 x 0.5 x 1.2cm hypoechoic non vascular area seen anterior to vessels, possible hematoma IMPRESSION: Small hypoechoic collection with ill-defined margins may be a small right groin hematoma.
[2019-11-14] MEDS: ASCORBIC ACID 500 MG TAB PO SCH (17:52)
[2019-11-14] MEDS: ASPIRIN 81 MG PO SCH (17:53)
[2019-11-14] MEDS: CHOLECALCIFEROL 1,000 UNIT TAB PO SCH (17:54)
[2019-11-14] MEDS: LEVOTHYROXINE 100 MCG TAB PO SCH (18:01)
[2019-11-14] MEDS: EZETIMIBE 10 MG TAB PO SCH (18:01)
[2019-11-14] MEDS: LINAGLIPTIN 5 MG TABLET PO SCH (18:01)
[2019-11-14] MEDS: PANTOPRAZOLE 40 MG TABLET PO SCH (18:02)
[2019-11-14] MEDS: SPIRONOLACTONE 25 MG TAB PO SCH (18:02)
[2019-11-14] MEDS: MULTIVITAMINS, THERA 1 EACH TAB PO SCH (18:02)
[2019-11-14] MEDS: amLODIPine 5 MG TAB PO SCH (18:21)
[2019-11-14] MEDS: BISOPROLOL 5 MG TAB PO SCH (18:21)
[2019-11-14] MEDS: HYDROcodone/APAP 5-325MG 1 EACH TAB PO SCH (18:44)
[2019-11-14 20:23] VITALS: RESP 18
[2019-11-14] MEDS ORDERED: FAMOTIDINE 20 MG TAB PO SCH (21:00)
[2019-11-14] MEDS ORDERED: CYCLOBENZAPRINE 5 MG TAB PO SCH (21:00)
[2019-11-15 01:28] VITALS: TEMP 97.5
[2019-11-15 06:44] LABS: Basophils % (A) 0 %; Eosinophils # (A) 0.1 k/uL (0-0.7); Eosinophils % (A) 1 %; HCT 38.9 % (34.0-46.0); Lymphocytes # (A) 1.4 k/uL (1.0-4.8); Lymphocytes % (A) 15 %; MCH 29.6 pg (25.0-35.0); MCHC 33.5 g/dL (31.0-37.0); MCV 88.3 fL (80.0-100.0); Mean Platelet Volume 7.9; Monocytes # (A) 0.7 k/uL (0-1.0); Monocytes % (A) 8 %; Neutrophils # (A) 6.7 k/uL (1.3-7.7); Neutrophils % (A) 73 %; Platelet Count 179 k/uL (150-450); RBC 4.41 m/uL (3.80-5.40); RDW 13.2 % (11.5-15.5); WBC 9.2 k/uL (3.8-10.6)
[2019-11-15 06:54] LABS: Calcium 8.7 mg/dL (8.4-10.2); Potassium 4.8 mmol/L (3.5-5.1)
[2019-11-15 06:59] LABS: Glucose,Whole Blood 139 mg/dL (75-99)
[2019-11-15] MEDS ORDERED: INSULIN ASPART (NovoLOG) 100 UNIT/ML VIAL SQ SCH (07:30)
[2019-11-15] MEDS: amLODIPine 5 MG TAB PO SCH (07:35)
[2019-11-15] MEDS: ASCORBIC ACID 500 MG TAB PO SCH (07:35)
[2019-11-15] MEDS: CHOLECALCIFEROL 1,000 UNIT TAB PO SCH (07:35)
[2019-11-15] MEDS: SPIRONOLACTONE 25 MG TAB PO SCH (07:35)
[2019-11-15] MEDS: PANTOPRAZOLE 40 MG TABLET PO SCH (07:36)
[2019-11-15] MEDS: LINAGLIPTIN 5 MG TABLET PO SCH (07:36)
[2019-11-15] MEDS: LEVOTHYROXINE 100 MCG TAB PO SCH (07:36)
[2019-11-15] MEDS: ASPIRIN 81 MG PO SCH (07:36)
[2019-11-15] MEDS: MULTIVITAMINS, THERA 1 EACH TAB PO SCH (07:36)
[2019-11-15] MEDS: HYDROcodone/APAP 5-325MG 1 EACH TAB PO SCH (07:36)
[2019-11-15] MEDS: EZETIMIBE 10 MG TAB PO SCH (07:39)
[2019-11-15] MEDS: BISOPROLOL 5 MG TAB PO SCH (07:44)
[2019-11-15] MEDS ORDERED: TICAGRELOR 90 MG TAB PO SCH (09:00)
[2019-11-15 09:37] VITALS: PULSE 68
--- NOTE | 2019-11-15 13:17 | P.PN ---
Subjective Progress Note Date: 11/15/19 Discharge note This is a 69-year-old female with history of hypertension, diabetes, hyperlipidemia, who presented to Dr. Gandhi with symptoms of exertional shortness of breath, she underwent a stress test which came back to be abnormal in the lateral wall region, subsequently patient was brought to the hospital by Dr. Galarza to undergo cardiac catheterization. Cardiac catheterization revealed two-vessel coronary artery disease and subsequently patient underwent successful stenting of the mid LAD, PLV branch of the RCA, and mid RCA. Yesterday afternoon patient was having some discomfort in her groin area, she developed a hematoma requiring pressure and subsequent Femstat. An ultrasound of the groin was performed which came back negative for any pseudoaneurysm. She was seen and examined this morning, doing well, denied any chest discomfort or difficulty in breathing. She does state that her back was giving her a lot of discomfort through the night last night. Her EKG from this morning shows a normal sinus rhythm with no changes from post-PCI. Blood pressure 122/60 with a heart rate is 60, 96% on room air. White blood cell count 9.2, hemoglobin 13, platelet count 179. Sodium 134, potassium 4.8, BUN 18, creatinine 0.8. Objective - Vital Signs Vital signs: Vital Signs Temp 97.5 F L 11/14/19 23:35 Pulse 68 11/15/19 08:00 Resp 18 11/15/19 08:00 BP 122/64 11/15/19 08:00 Pulse Ox 96 11/15/19 08:00 Intake & Output 11/14/19 11/15/19 11/15/19 18:59 06:59 18:59 Intake Total 595 800 240 Output Total 800 Balance -205 800 240 Weight 92.4 kg 90.9 kg Intake: IV 115 800 Sodium Chloride 0.9% 1, 0 800 000 ml In Empty Bag 1 bag @ 100 mls/hr IV .Q10H BARON Rx#:[id number] Oral 480 240 Output: Urine 800 Other: # Voids 1 1 - Exam PHYSICAL EXAMINATION: GENERAL: 69-year-old female in no acute distress at the time of my examination HEENT: Head is atraumatic, normocephalic. Pupils equal, round. Sclera anicteric. Conjunctiva are clear. Mucous membranes of the mouth are moist. Neck is supple. There is no elevated jugular venous pressure. No carotid bruit is heard. HEART EXAMINATION: Heart S1, S2 normal. No murmur or gallop heard. CHEST EXAMINATION: Lungs are clear to auscultation and precussion. No chest wall tenderness is noted on palpation or with deep breathing. ABDOMEN: Soft, nontender. Bowel sounds are heard. No organomegaly noted. EXTREMITIES: 2+ peripheral pulses with no evidence of peripheral edema and no calf tenderness noted. Right groin is ecchymotic, no hematoma, no bruit today. NEUROLOGIC patient is awake, alert and oriented 3 . - Labs CBC & Chem 7: 11/15/19 06:02 11/15/19 06:02 Labs: Abnormal Lab Results - Last 24 Hours (Table) 11/15/19 11/15/19 Range/Units 06:02 06:53 Sodium 134 L (137-145) mmol/L BUN 18 H (7-17) mg/dL Glucose 144 H (74-99) mg/dL POC Glucose (mg/dL) 139 H (75-99) mg/dL Assessment and Plan Plan: Assessment and plan #1 status post successful stenting of the mid LAD, PLV branch of the RCA, mid RCA #2 hypertension #3 hyperlipidemia Plan Patient will be discharged home today, follow-up appointment in the office with Dr. Mays post discharge. DNP note has been reviewed, I agree with a documented findings and plan of care. Patient was seen and examined.
[2019-11-15 13:43] VITALS: BP 132/62
[2019-11-16] MEDS ORDERED: metFORMIN 500 MG TAB PO SCH (09:00)
[2019-11-28] MEDS ORDERED: ATORVASTATIN 20 MG TAB PO SCH (09:00)
== END 2019-11-15 14:19 | disposition home or self-care (01) ==
LOC: CATHCVL 06:08 → 3SCARD 08:20 → CATHCVL 11-15 14:19
PROVIDERS: ATTEND Internal Medicine Cardiovascular Disease
DX: I25.110 Atherosclerotic heart disease of native coronary artery with unstable angina pectoris (principal); L76.32 Postprocedural hematoma of skin and subcutaneous tissue following other procedure; I10 Essential (primary) hypertension; E11.9 Type 2 diabetes mellitus without complications; G47.33 Obstructive sleep apnea (adult) (pediatric); E78.5 Hyperlipidemia, unspecified; G72.0 Drug-induced myopathy; T46.6X5A Adverse effect of antihyperlipidemic and antiarteriosclerotic drugs, initial encounter; Z99.89 Dependence on other enabling machines and devices; Z79.899 Other long term (current) drug therapy; Z79.84 Long term (current) use of oral hypoglycemic drugs; Z79.890 Hormone replacement therapy; Z79.82 Long term (current) use of aspirin; Z88.1 Allergy status to other antibiotic agents; Z88.5 Allergy status to narcotic agent; Z82.49 Family history of ischemic heart disease and other diseases of the circulatory system
CPT/HCPCS: 93458; 93926; 80048; 85025; C9600; C9601; C1769 ×3; C1887 ×2; C1725; C1894; C1874 ×2; J2250; J2001; J3010; J0583; J1170; Q9967 ×2; 93975

== ENCOUNTER 2019-12-04 21:17 | Emergency (ER) | payer MEDICARE ==
--- NOTE | 2019-12-04 23:54 | US ---
EXAMINATION TYPE: US venous doppler duplex LE RT DATE OF EXAM: 12/04/2019 11:49 PM COMPARISON: NONE CLINICAL HISTORY: pain, swelling ,recent procedure. Pain and swelling x 1 day. Hx DVT. Patient on Xar elto. Heart Cath 11/14/2019. SIDE PERFORMED: Right TECHNIQUE: The lower extremity deep venous system is examined utilizing real time linear array sonog malina with graded compression, doppler sonography and color-flow sonography. VESSELS IMAGED: External Iliac Vein (EIV) Common Femoral Vein Deep Femoral Vein Greater Saphenous Vein * Femoral Vein Popliteal Vein Small Saphenous Vein * Proximal Calf Veins (* superficial vessels) Right Leg: No evidence of DVT in veins imaged at this time from prox calf veins to EIV. Hypoechoic a richie seen right groin: 1.5 x 0.9 x 0.8 cm. IMPRESSION: No deep vein thrombosis in the right leg.
[2019-12-05] MEDS ORDERED: ACETAMINOPHEN TAB 500 MG TAB PO STA (00:12)
--- NOTE | 2019-12-05 00:31 | ED ---
Extremity Problem HPI - General Source: patient Mode of arrival: ambulatory Limitations: no limitations <Mariel Longo - Last Filed: 12/05/19 05:19> <Sierra Ramirez - Last Filed: 12/08/19 20:03> - General Chief complaint: Extremity Problem,Nontraumatic Stated complaint: Poss Blood Clot R Leg Time Seen by Provider: 12/04/19 23:00 - History of Present Illness Initial comments: 69 year-old female patient presents to the emergency department today for evaluation of a painful area to the right lower leg. Patient states this morning she noticed an area to the right anterior lower leg that was swollen, tender to the touch. He states that throughout the day the area became more swollen and started to have surrounding redness. Patient states that the area became increasingly painful with walking. She denies any calf pain or generalized swelling to the leg. Patient states that she does have a recent his tory of blood clot to the right groin where she had a puncture site for cardiac catheterization. Patient is currently taking Xarelto and Brelinta. Patient denies any fever or chills. Denies any known injury to the leg. Patient denies any recent rash, fever, chills, cough, palpitations, shortness of breath, chest pain, abdominal pain, nausea, vomiting, diarrhea, constipation, back pain, numbness, tingling, dizziness, weakness, hematuria, dysuria, urinary urgency, urinary frequency, headache, visual changes, or any other complaints. (Mariel Longo) - Related Data Home Medications Medication Instructions Recorded Confirmed Ascorbic Acid [Vitamin C] 500 mg PO DAILY 09/05/17 11/14/19 Aspirin [Adult Low Dose Aspirin EC] 81 mg PO DAILY 09/05/17 11/14/19 Cholecalciferol (Vitamin D3) 2,000 unit PO DAILY 09/05/17 11/14/19 [Vitamin D3] LORazepam [Ativan] 0.5 mg PO BID PRN 09/05/17 11/14/19 Levothyroxine Sodium [Synthroid] 100 mcg PO DAILY 09/05/17 11/14/19 Multivitamins, Thera [Multivitamin 1 tab PO DAILY 09/05/17 11/14/19 (formulary)] RABEprazole SODIUM [Aciphex] 20 mg PO DAILY 09/05/17 11/14/19 Rosuvastatin [Crestor] 10 mg PO Q14D 09/05/17 11/14/19 Spironolactone [Aldactone] 75 mg PO DAILY 09/05/17 11/14/19 Ubidecarenone [Co Q-10] 200 mg PO DAILY 09/05/17 11/14/19 L.acidoph,Paracasei, B.lactis 1 tab PO DAILY PRN 01/14/18 11/14/19 [Probiotic] Bisoprolol Fumarate [Zebeta] 5 mg PO DAILY 10/24/19 11/14/19 Cyclobenzaprine [Flexeril] 5 mg PO HS 10/24/19 11/14/19 Ranitidine HCl [Zantac] 300 mg PO HS 10/24/19 11/14/19 amLODIPine BESYLATE 5 mg PO DAILY 10/24/19 11/14/19 Ezetimibe [Zetia] 5 mg PO DAILY 11/11/19 11/14/19 Previous Rx's Medication Instructions Recorded Nitroglycerin Sl Tabs [Nitrostat] 0.4 mg SUBLINGUAL Q5M PRN #25 tab 11/15/19 Ticagrelor [Brilinta] 90 mg PO BID #60 tab 11/15/19 sitaGLIPtin PHOS/metFORMIN HCL 1 each PO DAILY #0 11/15/19 [Janumet Xr 50-500 mg Tablet] Allergies Allergy/AdvReac Type Severity Reaction Status Date / Time doxycycline Allergy Swelling Verified 12/04/19 21:24 irbesartan [From Avapro] Allergy Swelling Verified 12/04/19 21:24 adhesive tape AdvReac Rash/Hives Verified 12/04/19 21:24 diclofenac [From Arthrotec] AdvReac Swelling Verified 12/04/19 21:24 misoprostol [From Arthrotec] AdvReac Swelling Verified 12/04/19 21:24 morphine AdvReac Nausea & Verified 12/04/19 21:24 Vomiting prednisone AdvReac Rapid Verified 12/04/19 21:24 Heart Rate Review of Systems ROS Other: All systems not noted in ROS Statement are negative. <Mariel Longo - Last Filed: 12/05/19 05:19> ROS Other: All systems not noted in ROS Statement are negative. <Sierra Ramirez - Last Filed: 12/08/19 20:03> ROS Statement: Those systems with pertinent positive or pertinent negative responses have been documented in the HPI. Past Medical History Past Medical History: Diabetes Mellitus, Deep Vein Thrombosis (DVT), GERD/Reflux, Hyperlipidemia, Hypertension, Osteoarthritis (OA), Sleep Apnea/CPAP/BIPAP, Thyroid Disorder Additional Past Medical History / Comment(s): uses bpap machine History of Any Multi-Drug Resistant Organisms: None Reported Past Surgical History: Cholecystectomy, Heart Catheterization With Stent, Hysterectomy, Orthopedic Surgery, Tonsillectomy Additional Past Surgical History / Comment(s): eileen carpal tunnel,. eileen foot plantar fascitis. EGD. COLONOSCOPY Past Anesthesia/Blood Transfusion Reactions: No Reported Reaction Past Psychological History: Anxiety Smoking Status: Never smoker Past Alcohol Use History: None Reported Past Drug Use History: None Reported - Past Family History Mother Family Medical History: Thyroid Disorder Father Family Medical History: Diabetes Mellitus, Hypertension Additional Family Medical History / Comment(s): enlarged heart, Guillian [place]' <Mariel Longo M - Last Filed: 12/05/19 05:19> General Exam Limitations: no limitations General appearance: alert, in no apparent distress, other (This is a well- developed, well-nourished adult female patient in no acute distress. Vital signs upon presentation are temperature 98.2F, pulse 72, respirations 16, blood pressure 170/84, pulse ox 100% on room air.) Eye exam: Present: normal appearance, PERRL, EOMI. Absent: scleral icterus, conjunctival injection, periorbital swelling ENT exam: Present: normal exam, normal oropharynx, mucous membranes moist Respiratory exam: Present: normal lung sounds bilaterally. Absent: respiratory distress, wheezes, rales, rhonchi, stridor Cardiovascular Exam: Present: regular rate, normal rhythm, normal heart sounds. Absent: systolic murmur, diastolic murmur, rubs, gallop, clicks Extremities exam: Present: full ROM, tenderness (Right distal anterior lower leg), normal capillary refill, other (There is an area of ecchymosis and swelling to the right distal anterior lower leg, there is some mild surrounding erythema. Area is tender to the touch. No calf tenderness. No generalized swelling. Pedal and posttibial pulses are intact.). Absent: pedal edema, joint swelling, calf tenderness Neurological exam: Present: alert, oriented X3, CN II-XII intact Psychiatric exam: Present: normal affect, normal mood Skin exam: Present: warm, dry, intact, normal color. Absent: rash <Mariel Longo - Last Filed: 12/05/19 05:19> Course Vital Signs 12/04/19 12/05/19 21:21 00:40 Temperature 98.2 F 97.8 F Pulse Rate 72 82 Respiratory 16 18 Rate Blood Pressure 170/84 156/72 O2 Sat by Pulse 100 100 Oximetry Medical Decision Making - Radiology Data Radiology results: report reviewed <Mariel Longo - Last Filed: 12/05/19 05:19> <Sierra Ramirez - Last Filed: 12/08/19 20:03> - Medical Decision Making 69-year-old female patient presents to the emergency department today for evaluation of painful area to the right lower leg. Physical examination did reveal an ecchymotic area to the right anterior lower leg that had local edema and tenderness. Neurovascular status was intact. Ultrasound was obtained and showed no evidence for DVT. I did discuss findings and results with the patient. We did discuss symptoms are consistent with hematoma versus superficial venous thrombosis. Patient is instructed to apply warm compresses and keep the leg elevated. She is instructed to follow-up with her primary care physician for further evaluation in 1-2 days. Return parameters were discussed in detail. She verbalizes understanding and agrees with this plan. (Mariel Longo) I was available for consultation in the emergency department. The history and physical exam were done by the midlevel provider. I was consulted for this patients care. I reviewed the case with the midlevel provider and based on their presentation of the patient, I agree with the assessment, medical decision making and plan of care as documented. Chart was dictated using [email or web address] dictation software. Attempts were made to correct any dictation errors however some typographical errors may persist. (Sierra Ramirez) - Radiology Data Ultrasound of the right lower extremities obtained. Report was reviewed in its entirety. Impression by Dr. Camargo shows no deep pain thrombosis in the right leg. Hypoechoic areas in the right groin measuring 1.5 x 0.9 x 0.8 cm. (Mariel Longo) Disposition Is patient prescribed a controlled substance at d/c from ED?: No Time of Disposition: 00:31 <Mariel Longo - Last Filed: 12/05/19 05:19> <Sierra Ramirez - Last Filed: 12/08/19 20:03> Clinical Impression: Right leg pain, Right leg swelling Disposition: HOME SELF-CARE Condition: Good Instructions (If sedation given, give patient instructions): Superficial Thrombophlebitis (ED), Hematoma (ED) Additional Instructions: Keep leg elevated. Apply warm compresses over the area. Take Tylenol every 6 hours as needed for pain control. Follow-up with your primary care physician for recheck in 1-2 days. Return to the emergency department immediately for any new, worsening, or concerning symptoms. Referrals: Yisel Davila DO [Primary Care Provider] - 1-2 days
[2019-12-05 00:41] VITALS: BP 156/72; PULSE 82; RESP 18; TEMP 97.8
== END 2019-12-05 00:41 | disposition home or self-care (01) ==
LOC: EC 21:17
DX: M79.604 Pain in right leg (principal); M79.89 Other specified soft tissue disorders; R58 Hemorrhage, not elsewhere classified; L53.9 Erythematous condition, unspecified; M79.661 Pain in right lower leg; K21.9 Gastro-esophageal reflux disease without esophagitis; E78.5 Hyperlipidemia, unspecified; I10 Essential (primary) hypertension; M19.90 Unspecified osteoarthritis, unspecified site; G47.30 Sleep apnea, unspecified; E07.9 Disorder of thyroid, unspecified; Z88.1 Allergy status to other antibiotic agents; Z88.5 Allergy status to narcotic agent; Z88.6 Allergy status to analgesic agent; Z88.8 Allergy status to other drugs, medicaments and biological substances; Z91.048 Other nonmedicinal substance allergy status; Z79.01 Long term (current) use of anticoagulants; Z79.02 Long term (current) use of antithrombotics/antiplatelets; Z79.82 Long term (current) use of aspirin; Z79.890 Hormone replacement therapy; Z79.899 Other long term (current) drug therapy; Z86.718 Personal history of other venous thrombosis and embolism; Z95.5 Presence of coronary angioplasty implant and graft; Z99.89 Dependence on other enabling machines and devices
CPT/HCPCS: 99283

== ENCOUNTER → 2021-02-16 | Outpatient (CLI) | payer MEDICARE ==
--- NOTE | 2021-02-16 17:02 | P.HPBAR ---
Bariatric H&P - History & Physicial H&P Date: 02/16/21 History & Physicial: Visit/CC: Patient initial contact: Initial weight: Initial weight in pounds: Height: Initial BMI: Last weight: Current weight: Current weight in pounds: Current BMI: [place] body weight (based on NIH guidelines): Excess body weight loss: The patient is a 70 year-old F who presents for Bariatric Assessment. DATE OF SERVICE: 02/16/2021 REASON FOR CONSULTATION: Initial bariatric evaluation. HISTORY OF PRESENT ILLNESS: Swati Sánchez is a 70-year-old female who comes in with morbid obesity. She comes in with multiple co-morbidities due to obesity including diabetes type II, gastroesophageal reflux disease and osteoarthritis. She has tried Weight Watchers for weight loss. She is looking into the gastric bypass. She presents in consultation for weight loss management. At her height of 5 foot 2 inches, her ideal body weight is 135 pounds. She comes in 201 pounds, BMI 36.8. She is 66 pounds overweight. PAST MEDICAL HISTORY: 1. Morbid obesity due to excess calories 2. Body mass index of 36.9. 3. Osteoarthritis of the knees. 4. Osteoarthritis of the hips. 5. Osteoarthritis of the lower back. 6. Obstructive sleep apnea. 7. Hypertensive heart disease. 8. Diabetes type 2. 9. Gastroesophageal reflux disease. 10. Hypothyroidism. 11. Anxiety. 12. Panniculitis. PAST SURGICAL HISTORY: 1. Cholecystectomy. 2. Hysterectomy. 3. Orthopedic surgery. 4. Tonsillectomy. 5. Bilateral carpal tunnel. 6. Bilateral plantar fasciitis. HOME MEDICATIONS: Home Medications Medication Instructions Recorded Confirmed Ascorbic Acid [Vitamin C] 500 mg PO DAILY 09/05/17 04/11/21 Aspirin [Adult Low Dose Aspirin EC] 81 mg PO DAILY 09/05/17 04/11/21 Cholecalciferol (Vitamin D3) 2,000 unit PO DAILY 09/05/17 04/11/21 [Vitamin D3] Levothyroxine Sodium [Synthroid] 100 mcg PO DAILY 09/05/17 04/11/21 Multivitamins, Thera [Multivitamin 1 tab PO DAILY 09/05/17 04/11/21 (formulary)] RABEprazole SODIUM [Aciphex] 20 mg PO DAILY 09/05/17 04/11/21 Rosuvastatin [Crestor] 10 mg PO Q7DAYS 09/05/17 04/11/21 Spironolactone [Aldactone] 50 mg PO DAILY 09/05/17 04/11/21 Ubidecarenone [Co Q-10] 200 mg PO DAILY 09/05/17 04/11/21 Bisoprolol Fumarate [Zebeta] 5 mg PO DAILY 10/24/19 04/11/21 Ezetimibe [Zetia] 10 mg PO DAILY 11/11/19 04/11/21 Nystatin 1 applic MISCELLANE DIRECTED PRN 02/28/21 04/11/21 polyethylene glycoL 3350 [Miralax] 17 gm PO DAILY 02/28/21 04/11/21 tiZANidine HCL [Zanaflex] 4 mg PO DAILY 02/28/21 04/11/21 Previous Rx's Medication Instructions Recorded sitaGLIPtin PHOS/metFORMIN HCL 1 each PO DAILY #0 11/15/19 [Janumet Xr 50-500 mg Tablet] ALLERGIES: Allergies Allergy/AdvReac Type Severity Reaction Status Date / Time doxycycline Allergy Swelling Verified 04/11/21 11:20 irbesartan [From Avapro] Allergy Swelling Verified 04/11/21 11:20 adhesive tape AdvReac Rash/Hives Verified 04/11/21 11:20 diclofenac [From Arthrotec] AdvReac Swelling Verified 04/11/21 11:20 misoprostol [From Arthrotec] AdvReac Swelling Verified 04/11/21 11:20 morphine AdvReac Nausea & Verified 04/11/21 11:20 Vomiting prednisone AdvReac Rapid Verified 04/11/21 11:20 Heart Rate SOCIAL HISTORY: No active tobacco use. FAMILY HISTORY: No family history of ulcerative colitis disease or Crohn's disease. Family history of morbid obesity. No lupus in the family. No reports of stomach or esophageal cancer. Family history of diabetes type 2. REVIEW OF ORGAN SYSTEMS: CONSTITUTIONAL: At height of 5 feet 2 inches, his ideal body weight is 135 pounds. She comes in with 202 pounds. Body mass index is 36.9. He is 67 pounds overweight. HEENT: Denies any active troubles with vision or hearing. No troubles with swallowing. ENDOCRINE: Has diabetes. Has hypothyroidism. CARDIOVASCULAR: No reports of palpitations or heart attacks or chest pain. RESPIRATORY: Has daytime somnolence. No asthma. Has sleep apnea. GI: Denies any bright red blood per rectum. No diarrhea. Has constipation. MUSCULOSKELETAL: Has lower back pain and joint pain. Has osteoarthritis of the knees. History of bilateral lower extremity edema. NEURO: No headaches. No seizure disorders. PSYCH: No depression or suicidal ideation. Has anxiety. RHEUMATOLOGIC: No lupus. No rheumatoid arthritis. HEMATOLOGIC: Denies any abnormal bleeding or bruising. No personal history of DVTs. SKIN: No rash. No skin cancer. PHYSICAL EXAM: VITAL SIGNS: Height 5 foot 2 inches, weight 200 pounds. BMI 36.8 Vital Signs Temp 98.3 F 02/16/21 17:05 Pulse 64 02/16/21 17:05 Resp BP 163/83 02/16/21 17:05 Pulse Ox GENERAL: Well-developed in no acute distress. HEENT: No scleral icterus. Extraocular movements grossly intact. Hears conversational speech. No nasal drainage. NECK: Supple without lymphadenopathy. CHEST: Nonlabored respirations with equal bilateral excursions. CARDIOVASCULAR: Regular rate and regular rhythm. Distal 2+ pulses. ABDOMEN: Obese, soft, nontender, nondistended. MUSCULOSKELETAL: No clubbing, cyanosis or edema. NEURO: No focal or lateralizing signs. Cranial nerves 2 through 12 grossly within normal limits. PSYCH: Appropriate affect. Alert and oriented to person, place and time. SKIN: Good skin turgor. Well perfused. EGD FINDINGS: Squamocolumnar junction 30 cm from the incisors. Diaphragmatic hiatus at 35 cm. Hiatal hernia, 5 cm, sliding type Hill grade 3 lower esophageal valve. LA grade D erosive esophagitis biopsies obtained and GE junction No active duodenitis. Chronic gastritis Final Pathologic Diagnosis A. GASTRIC ANTRUM, BIOPSY: Benign gastric mucosa with minimal chronic gastritis. Helicobacter organisms are not identified on routine H+E stained sections. B. GASTROESOPHAGEAL JUNCTION, BIOPSY: Cardiac type mucosa with specialized intestinal metaplasia diagnostic of Barretts esophagus in the proper clinical setting. Negative for dysplasia. ASSESSMENT: 1. Morbid obesity due to excess calories. 2. Body mass index of 36.8 3. Osteoarthritis of the knees. 4. Osteoarthritis of the hips. 5. Osteoarthritis of the lower back. 6. Obstructive sleep apnea. 7. Hypertensive heart disease. 8. Diabetes type 2. 9. Gastroesophageal reflux disease. 10. Hypothyroidism. 11. Anxiety. 12. Panniculitis. 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 PLAN: 1. Surgical options including a band, gastric bypass, sleeve gastrectomy were described in detail. Alternatives such as gastric balloon including duodenal switch were described. She is looking into the gastric bypass. 2. The [place] bariatric surgical collaborative data and outcomes calculator were described with surgical options. 3. Recommend a bariatric metabolic panel to evaluate for micro- including macronutrient deficiencies. 4. For history of daytime somnolence, recommend evaluation and treatment for sleep apnea. 5. Dietary surveillance and counseling was reviewed. Increased protein intake over 65 grams daily advised. 6. Will need cardiac risk assessment. 7. Recommend medical risk assessment. 8. Psych assessment per insurance guidelines. 9. Recommend upper endoscopy. 10. Recommend 12-lead EKG. 11. Recommend esophagram 12. Recommend urine nicotine testing for history of tobacco abuse disorder 13. Recommend urine drug screen Thank you for this consultation. Past Medical History Past Medical History: Diabetes Mellitus, Deep Vein Thrombosis (DVT), GERD/Reflux, Hyperlipidemia, Hypertension, Osteoarthritis (OA), Sleep Apnea/CPAP/BIPAP, Thyroid Disorder Additional Past Medical History / Comment(s): uses bpap machine History of Any Multi-Drug Resistant Organisms: None Reported Past Surgical History: Cholecystectomy, Heart Catheterization With Stent, Hysterectomy, Orthopedic Surgery, Tonsillectomy Additional Past Surgical History / Comment(s): eileen carpal tunnel,. eileen foot plantar fascitis. EGD. COLONOSCOPY Past Anesthesia/Blood Transfusion Reactions: No Reported Reaction Past Psychological History: Anxiety Past Alcohol Use History: None Reported Past Drug Use History: None Reported - Past Family History Mother Family Medical History: Thyroid Disorder Father Family Medical History: Diabetes Mellitus, Hypertension Additional Family Medical History / Comment(s): enlarged heart, Guillian [place]' Bariatric Checklist Checklist: Plan: Checklist: EGD: 1. Hiatal hernia: 2. H. Pylori: HgbA1c: Vitamin D: Smoking: Never smoker Primary care physician referral: Avani Davila Psychiatry clearance: Cardiology clearance: Sleep study: Diet journal: VTE risk score: VTE risk level: Rehab needs at discharge:
[2021-02-17 11:53] VITALS: BP 163/83; PULSE 64; TEMP 98.3; BMI 36.7
== END | disposition home or self-care (01) ==
LOC: BARWHC3 15:52
PROVIDERS: ATTEND Surgery Plastic and Reconstructive Surgery
DX: E66.01 Morbid (severe) obesity due to excess calories (principal); K66.0 Peritoneal adhesions (postprocedural) (postinfection); M17.0 Bilateral primary osteoarthritis of knee; M16.0 Bilateral primary osteoarthritis of hip; M47.9 Spondylosis, unspecified; G47.33 Obstructive sleep apnea (adult) (pediatric); I11.9 Hypertensive heart disease without heart failure; E11.9 Type 2 diabetes mellitus without complications; K21.9 Gastro-esophageal reflux disease without esophagitis; E03.9 Hypothyroidism, unspecified; F41.9 Anxiety disorder, unspecified; M79.3 Panniculitis, unspecified; K22.70 Barrett's esophagus without dysplasia; Z88.1 Allergy status to other antibiotic agents; Z68.36 Body mass index [BMI] 36.0-36.9, adult
CPT/HCPCS: 99211

== ENCOUNTER → 2021-02-23 | Outpatient (CLI) | payer MEDICARE ==
[2021-02-23 11:52] LABS: HCT 42.3 % (37.2-46.3); HGB 13.4 g/dL (12.0-15.0); MCH 29.5 pg (27.0-32.0); MCHC 31.7 g/dL (32.0-37.0); MCV 93.2 fL (80.0-97.0); Mean Platelet Volume 11.3 fL (9.5-12.2); Platelet Count 181 X 10*3/uL (140-440); RBC 4.54 X 10*6/uL (4.10-5.20); WBC 5.53 X 10*3/uL (4.50-10.00)
[2021-02-23 14:54] LABS: INR 0.96 (0.90-1.11); Partial Thromboplastin Time 26.2 sec (23.5-31.0); Prothrombin Time 10.5 sec (9.9-11.9)
[2021-02-24 00:43] LABS: % Iron Saturation 16.89 (12.00-45.00); Chol/HDL Ratio 2.89; Cholesterol 127 mg/dL (0-200); Iron 64 ug/dL (50-170); LDL Cholesterol,Calculated 67.4 mg/dL (0.0-131.0); Total Iron Binding Capacity 379 ug/dL (228-460)
[2021-02-24 00:44] LABS: ALT 21 U/L (8-44); AST 21 U/L (13-35); Alkaline Phosphatase 61 U/L (41-126); BUN/Creat Ratio 23.57 Ratio (12.00-20.00); Calcium 9.9 mg/dL (8.7-10.3); Carbon Dioxide 21.8 mmol/L (21.6-31.8); Chloride 105 mmol/L (96-109); Glucose 167 mg/dL (70-110); Magnesium 1.5 mg/dL (1.5-2.4); Phosphorus 4.2 mg/dL (2.4-5.1); Potassium 5.7 mmol/L (3.5-5.5); Sodium 139 mmol/L (135-145); Total Bilirubin 0.5 mg/dL (0.3-1.2); Total Protein 6.6 g/dL (6.2-8.2)
[2021-02-24 00:55] LABS: Ferritin 46.8 ng/mL (10.0-291.0)
[2021-02-24 01:51] LABS: Folate, Serum >24.0 ng/mL
[2021-02-24 13:27] LABS: Zinc, Serum 72 ug/dL (60-130)
[2021-02-25 06:45] LABS: Vitamin A 75 ug/dL (38-106)
[2021-02-25 07:06] LABS: Vit B1(Thiamine) 88 ug/L (38-122)
== END | disposition home or self-care (01) ==
LOC: LABWHC1 07:22
PROVIDERS: ATTEND Surgery Plastic and Reconstructive Surgery
DX: E66.01 Morbid (severe) obesity due to excess calories (principal); E89.1 Postprocedural hypoinsulinemia; D50.8 Other iron deficiency anemias; K90.89 Other intestinal malabsorption; E55.9 Vitamin D deficiency, unspecified; K74.1 Hepatic sclerosis; N19 Unspecified kidney failure; K50.90 Crohn's disease, unspecified, without complications; R00.1 Bradycardia, unspecified; Z98.84 Bariatric surgery status
CPT/HCPCS: 36415; 80053; 80061; 82306; 82525; 82607; 82728; 82746; 83540; 83550; 83735; 83970; 84100; 84134; 84255; 84425; 84443; 84590; 84630; 85027; 85610; 85730; 93005

== ENCOUNTER → 2021-03-11 | Outpatient (CLI) | payer MEDICARE ==
--- NOTE | 2021-03-11 11:07 | FL ---
EXAMINATION TYPE: FL barium swallow DATE OF EXAM: 03/11/2021 CLINICAL HISTORY: Dysphagia TECHNIQUE: A double contrast esophagram is performed utilizing air and barium. A total of 27 second s of fluoroscopic time was utilized during procedure and 37 images obtained. COMPARISON: None FINDINGS: The esophagus demonstrates a few tertiary contractions and mild delayed emptying. No evide nce of hiatal hernia or stricture noted. No significant gastroesophageal reflux was seen during real time performance of this study. IMPRESSION: A few tertiary contractions are seen in the esophagus with mild delayed emptying, likely presbyesophagus.
== END | disposition home or self-care (01) ==
LOC: RADUSWWP 09:53
PROVIDERS: ATTEND Surgery Plastic and Reconstructive Surgery
DX: R13.10 Dysphagia, unspecified (principal)
CPT/HCPCS: 74220

== ENCOUNTER → 2021-03-30 | Outpatient (CLI) | payer MEDICARE ==
[2021-03-30 16:45] VITALS: BP 149/76; PULSE 61; RESP 18; TEMP 98.2; BMI 36.7
--- NOTE | 2021-03-30 17:08 | P.PN ---
Subjective Progress Note Date: 03/30/21 DATE OF SERVICE: 03/30/2021 CHIEF COMPLAINT: Morbid obesity HISTORY OF PRESENT ILLNESS: Swati Sánchez is a 70-year-old female who comes in with morbid obesity. She comes in with multiple co-morbidities due to obesity including diabetes type II, gastroesophageal reflux disease and osteoarthritis. She is looking into the gastric bypass. She reports dysphagia. She is doing medical supervised weight loss. At her height of 5 foot 2 inches, her ideal body weight is 135 pounds. She comes in 201 pounds with her weight unchanged in 2 months. Her body mass index is 36.8. She is 66 pounds overweight. PAST MEDICAL HISTORY: 1. Morbid obesity due to excess calories 2. Body mass index of 36.9. 3. Osteoarthritis of the knees. 4. Osteoarthritis of the hips. 5. Osteoarthritis of the lower back. 6. Obstructive sleep apnea. 7. Hypertensive heart disease. 8. Diabetes type 2. 9. Gastroesophageal reflux disease. 10. Hypothyroidism. 11. Anxiety. 12. Panniculitis. PAST SURGICAL HISTORY: 1. Cholecystectomy. 2. Hysterectomy. 3. Orthopedic surgery. 4. Tonsillectomy. 5. Bilateral carpal tunnel. 6. Bilateral plantar fasciitis. HOME MEDICATIONS: Home Medications Medication Instructions Recorded Confirmed Ascorbic Acid [Vitamin C] 500 mg PO DAILY 09/05/17 04/11/21 Aspirin [Adult Low Dose Aspirin EC] 81 mg PO DAILY 09/05/17 04/11/21 Cholecalciferol (Vitamin D3) 2,000 unit PO DAILY 09/05/17 04/11/21 [Vitamin D3] Levothyroxine Sodium [Synthroid] 100 mcg PO DAILY 09/05/17 04/11/21 Multivitamins, Thera [Multivitamin 1 tab PO DAILY 09/05/17 04/11/21 (formulary)] RABEprazole SODIUM [Aciphex] 20 mg PO DAILY 09/05/17 04/11/21 Rosuvastatin [Crestor] 10 mg PO Q7DAYS 09/05/17 04/11/21 Spironolactone [Aldactone] 50 mg PO DAILY 09/05/17 04/11/21 Ubidecarenone [Co Q-10] 200 mg PO DAILY 09/05/17 04/11/21 Bisoprolol Fumarate [Zebeta] 5 mg PO DAILY 10/24/19 04/11/21 Ezetimibe [Zetia] 10 mg PO DAILY 11/11/19 04/11/21 Nystatin 1 applic MISCELLANE DIRECTED PRN 02/28/21 04/11/21 polyethylene glycoL 3350 [Miralax] 17 gm PO DAILY 02/28/21 04/11/21 tiZANidine HCL [Zanaflex] 4 mg PO DAILY 02/28/21 04/11/21 Previous Rx's Medication Instructions Recorded sitaGLIPtin PHOS/metFORMIN HCL 1 each PO DAILY #0 11/15/19 [Janumet Xr 50-500 mg Tablet] ALLERGIES: Allergies Allergy/AdvReac Type Severity Reaction Status Date / Time doxycycline Allergy Swelling Verified 04/11/21 11:20 irbesartan [From Avapro] Allergy Swelling Verified 04/11/21 11:20 adhesive tape AdvReac Rash/Hives Verified 04/11/21 11:20 diclofenac [From Arthrotec] AdvReac Swelling Verified 04/11/21 11:20 misoprostol [From Arthrotec] AdvReac Swelling Verified 04/11/21 11:20 morphine AdvReac Nausea & Verified 04/11/21 11:20 Vomiting prednisone AdvReac Rapid Verified 04/11/21 11:20 Heart Rate SOCIAL HISTORY: No active tobacco use. FAMILY HISTORY: No family history of ulcerative colitis disease or Crohn's disease. Family history of morbid obesity. No lupus in the family. No reports of stomach or esophageal cancer. Family history of diabetes type 2. REVIEW OF ORGAN SYSTEMS: CONSTITUTIONAL: At height of 5 feet 2 inches, his ideal body weight is 135 pounds. She comes in with 202 pounds. Body mass index is 36.9. She is 67 pounds overweight. HEENT: Denies any active troubles with vision or hearing. No troubles with swallowing. ENDOCRINE: Has diabetes. Has hypothyroidism. CARDIOVASCULAR: No reports of palpitations or heart attacks or chest pain. RESPIRATORY: Has daytime somnolence. No asthma. Has sleep apnea. GI: Denies any bright red blood per rectum. No diarrhea. Has constipation. MUSCULOSKELETAL: Has lower back pain and joint pain. Has osteoarthritis of the knees. History of bilateral lower extremity edema. NEURO: No headaches. No seizure disorders. PSYCH: No depression or suicidal ideation. Has anxiety. RHEUMATOLOGIC: No lupus. No rheumatoid arthritis. HEMATOLOGIC: Denies any abnormal bleeding or bruising. No personal history of DVTs. SKIN: No rash. No skin cancer. PHYSICAL EXAM: VITAL SIGNS: Height 5 foot 2 inches, weight 201 pounds. BMI 36.8 Vital Signs Temp 98.2 F 03/30/21 16:42 Pulse 61 03/30/21 16:42 Resp 18 03/30/21 16:42 BP 149/76 03/30/21 16:42 Pulse Ox GENERAL: Well-developed in no acute distress. HEENT: No scleral icterus. Extraocular movements grossly intact. Hears conversational speech. No nasal drainage. NECK: Supple without lymphadenopathy. CHEST: Nonlabored respirations with equal bilateral excursions. CARDIOVASCULAR: Regular rate and regular rhythm. Distal 2+ pulses. ABDOMEN: Obese, soft, nontender, nondistended. MUSCULOSKELETAL: No clubbing, cyanosis or edema. NEURO: No focal or lateralizing signs. Cranial nerves 2 through 12 grossly within normal limits. PSYCH: Appropriate affect. Alert and oriented to person, place and time. SKIN: Good skin turgor. Well perfused. STUDIES: Esophagram reviewed with presbyesophagus. This is my independent interpretation. CT of the abdomen and pelvis reviewed with umbilical hernia identified. This is my independent interpretation. EGD FINDINGS: Squamocolumnar junction 30 cm from the incisors. Diaphragmatic hiatus at 35 cm. Hiatal hernia, 5 cm, sliding type Hill grade 3 lower esophageal valve. LA grade D erosive esophagitis biopsies obtained and GE junction No active duodenitis. Chronic gastritis Final Pathologic Diagnosis A. GASTRIC ANTRUM, BIOPSY: Benign gastric mucosa with minimal chronic gastritis. Helicobacter organisms are not identified on routine H+E stained sections. B. GASTROESOPHAGEAL JUNCTION, BIOPSY: Cardiac type mucosa with specialized intestinal metaplasia diagnostic of Barretts esophagus in the proper clinical setting. Negative for dysplasia. ASSESSMENT: 1. Morbid obesity due to excess calories. 2. Body mass index of 36.8 3. Osteoarthritis of the knees. 4. Osteoarthritis of the hips. 5. Osteoarthritis of the lower back. 6. Obstructive sleep apnea. 7. Hypertensive heart disease. 8. Diabetes type 2. 9. Gastroesophageal reflux disease with erosive esophagitis 10. Hypothyroidism. 11. Anxiety. 12. Panniculitis. 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 14. Umbilical hernia. 15. Chronic renal disease. PLAN: 1. Bariatric options between a sleeve, band and a Brad-en-Y gastric bypass were reviewed in detail. She is looking into the gastric bypass. Robotic assisted approach described. 2. The [place] [facility] Data was also reviewed with benefits and risks as described. 3. An 8 page second-generation bariatric consent form was reviewed in detail including potential of bleeding, infection, leaks, adequate weight loss, nutritional deficiencies which the patient demonstrated understanding of the risks. 4. A 2 week high-protein low caloric 800 kcal diet described to address hepa tomegaly. 5. Preoperative labs including complete metabolic panel and CBC with type and screen recommended. 6. DVT prophylaxis per [place] [facility]. 7. Antibiotic prophylaxis. 8. Inpatient hospitalization anticipated for more than 2 nights. 9. All questions and concerns were addressed with the patient. 10. She is at elevated risk with chronic renal disease. 11. Overall, patient has expressed understanding of bariatric care including postoperative diet and commitment of lifestyle. Patient should benefit from surgical intervention for correction of her morbid obesity. 12. She has historic elevated potassium and kidney disease with potassium sparing diuretics. Recommend nephrology consultation. Thank you for this consultation. Objective - Vital Signs Vital signs: Vital Signs Temp 98.2 F 03/30/21 16:42 Pulse 61 03/30/21 16:42 Resp 18 03/30/21 16:42 BP 149/76 03/30/21 16:42 Pulse Ox Intake & Output 03/29/21 03/30/21 03/30/21 18:59 06:59 18:59 Weight 91.172 kg
== END ==
LOC: BARWHC3 15:55
PROVIDERS: ATTEND Surgery Plastic and Reconstructive Surgery
DX: E66.01 Morbid (severe) obesity due to excess calories (principal); M17.0 Bilateral primary osteoarthritis of knee; M16.0 Bilateral primary osteoarthritis of hip; M47.816 Spondylosis without myelopathy or radiculopathy, lumbar region; G47.33 Obstructive sleep apnea (adult) (pediatric); I12.9 Hypertensive chronic kidney disease with stage 1 through stage 4 chronic kidney disease, or unspecified chronic kidney disease; E11.22 Type 2 diabetes mellitus with diabetic chronic kidney disease; N18.9 Chronic kidney disease, unspecified; K21.00 Gastro-esophageal reflux disease with esophagitis, without bleeding; E03.9 Hypothyroidism, unspecified; F41.9 Anxiety disorder, unspecified; M79.3 Panniculitis, unspecified; K22.70 Barrett's esophagus without dysplasia; K42.9 Umbilical hernia without obstruction or gangrene; Z68.36 Body mass index [BMI] 36.0-36.9, adult; Z79.82 Long term (current) use of aspirin; Z79.890 Hormone replacement therapy; Z79.899 Other long term (current) drug therapy; Z79.84 Long term (current) use of oral hypoglycemic drugs; Z88.1 Allergy status to other antibiotic agents; Z91.048 Other nonmedicinal substance allergy status; Z88.6 Allergy status to analgesic agent; Z88.5 Allergy status to narcotic agent; Z88.8 Allergy status to other drugs, medicaments and biological substances
CPT/HCPCS: 99211

== ENCOUNTER → 2021-04-11 | Outpatient (CLI) | payer MEDICARE ==
[2021-04-11 11:47] VITALS: BMI 37.6
== END ==
LOC: BARWHC3 08:41
PROVIDERS: ATTEND Surgery Plastic and Reconstructive Surgery
DX: E66.01 Morbid (severe) obesity due to excess calories (principal); Z71.3 Dietary counseling and surveillance; Z68.37 Body mass index [BMI] 37.0-37.9, adult; Z88.1 Allergy status to other antibiotic agents; Z91.048 Other nonmedicinal substance allergy status; Z88.6 Allergy status to analgesic agent; Z88.5 Allergy status to narcotic agent; Z88.8 Allergy status to other drugs, medicaments and biological substances
CPT/HCPCS: 97804

== ENCOUNTER → 2021-05-02 | Outpatient (CLI) | payer MEDICARE ==
[2021-05-02 16:26] LABS: Anion Gap 8.8 mmol/L (4.00-12.00); BUN/Creat Ratio 18.33 Ratio (12.00-20.00); Calcium 8.8 mg/dL (8.7-10.3); Carbon Dioxide 23.2 mmol/L (21.6-31.8); Magnesium 1.5 mg/dL (1.5-2.4); Non-African American GFR(CKD) 45.8 (60.0-200.0); Potassium 4.7 mmol/L (3.5-5.5)
== END | disposition home or self-care (01) ==
LOC: LABWHC1 08:24
PROVIDERS: ATTEND Nurse Practitioner Adult Health
DX: I10 Essential (primary) hypertension (principal)
CPT/HCPCS: 36415; 80048; 83735

== ENCOUNTER → 2021-09-20 | Outpatient (CLI) | payer MEDICARE ==
--- NOTE | 2021-09-22 14:13 | MM ---
Reason for exam: screening (asymptomatic). Last mammogram was performed 3 years and 4 months ago. History: Patient is postmenopausal. Took estrogen for 10 years. Physical Findings: A clinical breast exam by your physician is recommended on an annual basis and results should be correlated with mammographic findings. MG 3D Screening Mammo W/Cad Bilateral CC and MLO view(s) were taken. Prior study comparison: May 09, 2018, bilateral MG 3d screening mammo w/cad. October 20, 2015, bilateral MG screening mammo w CAD. There are scattered fibroglandular densities. No significant changes when compared with prior studies. ASSESSMENT: Benign, BI-RAD 2 RECOMMENDATION: Routine screening mammogram of both breasts in 1 year.
== END | disposition home or self-care (01) ==
LOC: RADMAMWWP 08:02
PROVIDERS: ATTEND Family Medicine
DX: Z12.31 Encounter for screening mammogram for malignant neoplasm of breast (principal); Z78.0 Asymptomatic menopausal state
CPT/HCPCS: 77063; 77067

== ENCOUNTER → 2022-02-03 | Outpatient (CLI) | payer MEDICARE ==
[2022-02-03 16:04] LABS: HGB 13.2 g/dL (12.0-15.0); MCH 28.9 pg (27.0-32.0); MCHC 32.2 g/dL (32.0-37.0); MCV 89.9 fL (80.0-97.0); Mean Platelet Volume 11.3 fL (9.5-12.2); NRBC Per 100 WBC 0 /100 WBCS (0.0-0.0); Platelet Count 193 X 10*3/uL (140-440); RBC 4.56 X 10*6/uL (4.10-5.20); RDW 12.7 % (11.5-14.5); WBC 6.36 X 10*3/uL (4.50-10.00)
[2022-02-03 16:26] LABS: ALT 24 U/L (8-44); AST 22 U/L (13-35); African American GFR (CKD) 42.2 (60.0-200.0); Albumin 4.5 g/dL (3.8-4.9); Albumin/Globulin Ratio 1.88 (1.60-3.17); Alkaline Phosphatase 63 U/L (41-126); BUN/Creat Ratio 19.72 Ratio (12.00-20.00); Blood Urea Nitrogen 28.4 mg/dL (9.0-27.0); Calcium 9.3 mg/dL (8.7-10.3); Carbon Dioxide 21.7 mmol/L (20.0-27.5); Chloride 103 mmol/L (96-109); Globulin 2.4 g/dL (1.6-3.3); Glucose 181 mg/dL (70-110); LDL Cholesterol,Calculated 70.3 mg/dL (0.0-131.0); Non-African American GFR(CKD) 36.4 (60.0-200.0); Potassium 4.6 mmol/L (3.5-5.5); Sodium 138 mmol/L (135-145); Total Protein 6.9 g/dL (6.2-8.2)
== END | disposition home or self-care (01) ==
LOC: LABWHC1 09:40
PROVIDERS: ATTEND Physician Assistant Medical
DX: I10 Essential (primary) hypertension (principal); E11.9 Type 2 diabetes mellitus without complications; E66.9 Obesity, unspecified
CPT/HCPCS: 36415; 80053; 80061; 83036; 84443; 85027

== ENCOUNTER → 2022-05-11 | Outpatient (CLI) | payer MEDICARE ==
[2022-05-11 14:24] LABS: HCT 41.1 % (37.2-46.3); HGB 13.3 g/dL (12.0-15.0); MCH 29.2 pg (27.0-32.0); MCHC 32.4 g/dL (32.0-37.0); MCV 90.3 fL (80.0-97.0); Mean Platelet Volume 11.7 fL (9.5-12.2); NRBC Per 100 WBC 0 /100 WBCS (0.0-0.0); Platelet Count 210 X 10*3/uL (140-440); RBC 4.55 X 10*6/uL (4.10-5.20); RDW 13.3 % (11.5-14.5); WBC 6.19 X 10*3/uL (4.50-10.00)
[2022-05-11 14:50] LABS: African American GFR (CKD) 46.5 (60.0-200.0); Albumin 4.4 g/dL (3.8-4.9); BUN/Creat Ratio 15.79 Ratio (12.00-20.00); Calcium 9.1 mg/dL (8.7-10.3); Carbon Dioxide 23.5 mmol/L (20.0-27.5); Chloride 104 mmol/L (96-109); Chol/HDL Ratio 2.76 Ratio; Glucose 150 mg/dL (70-110); Non-African American GFR(CKD) 40.1 (60.0-200.0); Potassium 4.9 mmol/L (3.5-5.5); Sodium 138 mmol/L (135-145); Total Protein 6.3 g/dL (6.2-8.2)
[2022-05-11 14:51] LABS: ALT 23 U/L (8-44); AST 22 U/L (13-35); Albumin/Globulin Ratio 2.29 (1.60-3.17); Alkaline Phosphatase 56 U/L (41-126); Globulin 1.9 g/dL (1.6-3.3)
== END | disposition home or self-care (01) ==
LOC: LABWHC1 08:54
PROVIDERS: ATTEND Family Medicine
DX: E11.9 Type 2 diabetes mellitus without complications (principal); E78.5 Hyperlipidemia, unspecified; E66.9 Obesity, unspecified
CPT/HCPCS: 36415; 80053; 80061; 83036; 84443; 85027

== ENCOUNTER → 2022-08-23 | Outpatient (CLI) | payer MEDICARE ==
[2022-08-23 14:39] LABS: HGB 13.2 g/dL (12.0-15.0); MCH 29.7 pg (27.0-32.0); MCHC 32.2 g/dL (32.0-37.0); MCV 92.3 fL (80.0-97.0); Mean Platelet Volume 10.8 fL (9.5-12.2); NRBC Per 100 WBC 0 /100 WBCS (0.0-0.0); Platelet Count 202 X 10*3/uL (140-440); RBC 4.44 X 10*6/uL (4.10-5.20); RDW 13.2 % (11.5-14.5)
[2022-08-23 14:50] LABS: ALT 21 U/L (8-44); AST 21 U/L (13-35); African American GFR (CKD) 46.2 (60.0-200.0); Albumin 4.3 g/dL (3.8-4.9); Albumin/Globulin Ratio 1.93 (1.60-3.17); Alkaline Phosphatase 63 U/L (41-126); BUN/Creat Ratio 16.39 Ratio (12.00-20.00); Blood Urea Nitrogen 21.8 mg/dL (9.0-27.0); Calcium 9.2 mg/dL (8.7-10.3); Carbon Dioxide 26.5 mmol/L (20.0-27.5); Chloride 101 mmol/L (96-109); Chol/HDL Ratio 3.23 Ratio; Creatine Kinase 61 U/L (26-186); Globulin 2.2 g/dL (1.6-3.3); Glucose 140 mg/dL (70-110); Magnesium 1.9 mg/dL (1.5-2.4); Non-African American GFR(CKD) 39.8 (60.0-200.0); Sodium 137 mmol/L (135-145); Total Protein 6.5 g/dL (6.2-8.2)
== END | disposition home or self-care (01) ==
LOC: LABWHC1 08:13
PROVIDERS: ATTEND Family Medicine
DX: E11.9 Type 2 diabetes mellitus without complications (principal); E78.5 Hyperlipidemia, unspecified; R25.2 Cramp and spasm
CPT/HCPCS: 36415; 80053; 80061; 82550; 83036; 83735; 85027

== ENCOUNTER 2022-10-05 22:40 | Emergency (ER) | payer MEDICARE ==
[2022-10-05 22:52] VITALS: TEMP 97.8
[2022-10-05] MEDS ORDERED: SODIUM CHLORIDE 0.9% 500 ML 500 ML IV STA (22:56)
[2022-10-05] MEDS ORDERED: MORPHINE SULFATE 4 MG/ML SYRINGE IV STA (22:56)
--- NOTE | 2022-10-05 23:36 | XR ---
EXAMINATION TYPE: XR chest 1V portable DATE OF EXAM: 10/05/2022 COMPARISON: 07/31/2012 HISTORY: Chest pain TECHNIQUE: FINDINGS: Heart is normal. Lungs are clear. Diaphragm is normal. The bony thorax is intact. There are chest leads. IMPRESSION: No active cardiopulmonary disease. Normal heart. No change.
[2022-10-05] MEDS ORDERED: KETOROLAC 15 MG/ML 1 ML VIAL IVP STA (23:37)
--- NOTE | 2022-10-05 23:37 | ED ---
Chest Pain HPI - General Chief Complaint: Extremity Problem,Nontraumatic Stated Complaint: Left arm pain Time Seen by Provider: 10/05/22 22:56 Source: patient, RN notes reviewed, old records reviewed Mode of arrival: ambulatory Limitations: no limitations - History of Present Illness Initial Comments: This is a 72-year-old female to the emergency department for evaluation. Patient states 4 hours ago she was watching TV and began with some arm pain. Pain persisted. Patient began to be concerned that she may have some issues going on with her heart is pain with her left shoulder left back. No injury. Patient does have history of heart disease and CAD. No shortness of breath no diaphoresis. Patient has no other current complaints. Patient has no medications that she took for the pain pain is worse with touch and movement of left arm MD Complaint: other (Left shoulder left arm pain) -: hour(s) (4) Onset: during rest Pain Location: left chest Pain Radiation: back Severity: mild Severity scale (1-10): 4 Quality: tightness, sharp Consistency: constant Improves With: nothing Worsens With: nothing Context: other (No injury noted) Anginal Symptoms: sense of impending doom Other Symptoms: other (0) Treatments Prior to Arrival: none - Related Data Home Medications Medication Instructions Recorded Confirmed Ascorbic Acid [Vitamin C] 500 mg PO DAILY 09/05/17 04/11/21 Aspirin [Adult Low Dose Aspirin EC] 81 mg PO DAILY 09/05/17 04/11/21 Cholecalciferol (Vitamin D3) 2,000 unit PO DAILY 09/05/17 04/11/21 [Vitamin D3] Levothyroxine Sodium [Synthroid] 100 mcg PO DAILY 09/05/17 04/11/21 Multivitamins, Thera [Multivitamin 1 tab PO DAILY 09/05/17 04/11/21 (formulary)] RABEprazole SODIUM [Aciphex] 20 mg PO DAILY 09/05/17 04/11/21 Rosuvastatin [Crestor] 10 mg PO Q7DAYS 09/05/17 04/11/21 Spironolactone [Aldactone] 50 mg PO DAILY 09/05/17 04/11/21 Ubidecarenone [Co Q-10] 200 mg PO DAILY 09/05/17 04/11/21 Bisoprolol Fumarate [Zebeta] 5 mg PO DAILY 10/24/19 04/11/21 Ezetimibe [Zetia] 10 mg PO DAILY 11/11/19 04/11/21 Nystatin 1 applic MISCELLANE DIRECTED PRN 02/28/21 04/11/21 polyethylene glycoL 3350 [Miralax] 17 gm PO DAILY 02/28/21 04/11/21 tiZANidine HCL [Zanaflex] 4 mg PO DAILY 02/28/21 04/11/21 Previous Rx's Medication Instructions Recorded sitaGLIPtin PHOS/metFORMIN HCL 1 each PO DAILY #0 11/15/19 [Janumet Xr 50-500 mg Tablet] Allergies Allergy/AdvReac Type Severity Reaction Status Date / Time doxycycline Allergy Swelling Verified 10/05/22 22:52 irbesartan [From Avapro] Allergy Swelling Verified 10/05/22 22:52 adhesive tape AdvReac Rash/Hives Verified 10/05/22 22:52 diclofenac [From Arthrotec] AdvReac Swelling Verified 10/05/22 22:52 misoprostol [From Arthrotec] AdvReac Swelling Verified 10/05/22 22:52 morphine AdvReac Nausea & Verified 10/05/22 22:52 Vomiting prednisone AdvReac Rapid Verified 10/05/22 22:52 Heart Rate Review of Systems ROS Statement: Those systems with pertinent positive or pertinent negative responses have been documented in the HPI. ROS Other: All systems not noted in ROS Statement are negative. EKG Findings - EKG Comments: EKG Findings:: EKG is sinus 69 MA 170 QRS 92 QTC 40 Past Medical History Past Medical History: Coronary Artery Disease (CAD), Diabetes Mellitus, Deep Vein Thrombosis (DVT), GERD/Reflux, Hyperlipidemia, Hypertension, Osteoarthritis (OA), Sleep Apnea/CPAP/BIPAP, Thyroid Disorder Additional Past Medical History / Comment(s): uses bpap machine History of Any Multi-Drug Resistant Organisms: None Reported Past Surgical History: Cholecystectomy, Heart Catheterization With Stent, Hysterectomy, Orthopedic Surgery, Tonsillectomy Additional Past Surgical History / Comment(s): eileen carpal tunnel,. eileen foot plantar fascitis. EGD. COLONOSCOPY Past Anesthesia/Blood Transfusion Reactions: No Reported Reaction Date of Last Stent Placement:: 4-20 Past Psychological History: Anxiety Smoking Status: Never smoker Past Alcohol Use History: None Reported Past Drug Use History: None Reported - Past Family History Mother Family Medical History: Thyroid Disorder Father Family Medical History: Diabetes Mellitus, Hypertension Additional Family Medical History / Comment(s): enlarged heart, Guillian Winthrop' General Exam - General Exam Comments Initial Comments: Significant tenderness to left shoulder joint before meals joint, as well as lateral left biceps feeling down left arm, radial ulnar and median nerves are intact Limitations: no limitations General appearance: alert, in no apparent distress Head exam: Present: atraumatic, normocephalic, normal inspection Eye exam: Present: normal appearance, PERRL, EOMI. Absent: scleral icterus, conjunctival injection, periorbital swelling ENT exam: Present: normal exam, mucous membranes moist Neck exam: Present: normal inspection. Absent: tenderness, meningismus, lymphadenopathy Respiratory exam: Present: normal lung sounds bilaterally. Absent: respiratory distress, wheezes, rales, rhonchi, stridor Cardiovascular Exam: Present: regular rate, normal rhythm, normal heart sounds. Absent: systolic murmur, diastolic murmur, rubs, gallop, clicks GI/Abdominal exam: Present: soft, normal bowel sounds. Absent: distended, tenderness, guarding, rebound, rigid Extremities exam: Present: normal inspection, full ROM, normal capillary refill. Absent: tenderness, pedal edema, joint swelling, calf tenderness Back exam: Present: normal inspection Neurological exam: Present: alert, oriented X3, CN II-XII intact Psychiatric exam: Present: normal affect, normal mood Skin exam: Present: warm, dry, intact, normal color. Absent: rash Course Vital Signs 10/05/22 10/05/22 10/06/22 22:49 23:01 00:44 Temperature 97.8 F Pulse Rate 68 71 Pulse Rate [ 70 Sales [employer] ] Respiratory 20 16 Rate Blood Pressure 169/82 156/66 O2 Sat by Pulse 98 97 Oximetry - Reevaluation(s) Reevaluation #1: 10/06/22 00:54 Medical record is reviewed Reevaluation #2: 10/06/22 00:54 Patient has improvement in pain here in the ER Reevaluation #3: 10/06/22 00:54 Patient informed results and questions answered Reevaluation #4: 10/06/22 00:54 Differential Chest Pain: Stable Angina, Unstable Angina, STEMI, NSTEMI Aortic Dissection, Pneumothorax, Musculoskeletal, Esophageal Spasm GERD, Cholecystitis, Pancreatitis, Zoster, this is not meant to be an all-inclusive list. Reevaluation #5: 10/06/22 00:54 Was pt. sent in by a medical professional or institution? @ -no Did you speak to anyone other than the patient for history? @ -no Did you review nursing and triage notes? @ -agree Were old charts reviewed? @ -no Differential Diagnosis? @ -no EKG interpreted by me (3pts min.)? @ -yes X-rays interpreted by me (1pt min.)? @ -yes CT interpreted by me (1pt min.)? @ -[none] U/S interpreted by me (1pt. min.)? @ -[none] What testing was considered but not performed? (CT, X-rays, U/S, labs)? Why? @ no What meds were considered but not given? Why? @ -[none] Did you discuss the management of the patient with other professionals? @ -no Did you reconcile home meds? @ -[none] Was smoking cessation discussed for >3mins.? @ -[none] Was critical care preformed (if so, how long)? @ -[none] Were there social determinants of health that impacted care today? How? (Homelessness, low income, unemployed, alcoholism, drug addiction, transportation, low edu. Level, literacy, decrease access to med. care, prison, rehab)? @ -no Was there de-escalation of care discussed even if they declined? (Discuss DNR or withdrawal of care, Hospice)? @ -no What co-morbidities impacted this encounter? (DM, HTN, Smoking, COPD, CAD, Cancer, CVA, Hep., AIDS, mental health diagnosis, sleep apnea, morbid obesity)? @ -no Was patient admitted / discharged? @ -dc Undiagnosed new problem with uncertain prognosis? @ -[none] Drug Therapy requiring intensive monitoring for toxicity (Heparin, Nitro, Insulin, Cardizem)? @ -[none] Were any procedures done? @ -[none] Diagnosis/symptom? @ -[default] Acute, or Chronic, or Acute on Chronic? @ -[default] Uncomplicated (without systemic symptoms) or Complicated (systemic symptoms)? @ -[default] Side effects of treatment? @ -[none] Exacerbation, Progression, or Severe Exacerbation] @ -[no] Poses a threat to life or bodily function? @ -[no] Disposition Clinical Impression: Neuralgia, Left arm pain, Neuropathy Disposition: HOME SELF-CARE Condition: Good Instructions (If sedation given, give patient instructions): Arm Pain (ED), Paresthesia (ED) Is patient prescribed a controlled substance at d/c from ED?: No Referrals: Kriss Santos MD [Primary Care Provider] - 1-2 days Time of Disposition: 01:00
[2022-10-05 23:42] LABS: Albumin 4.7 g/dL (3.5-5.0); Calcium 9.1 mg/dL (8.4-10.2); Magnesium 1.9 mg/dL (1.6-2.3); Phosphorus 3.7 mg/dL (2.5-4.5); Potassium 4.7 mmol/L (3.5-5.1); Total Bilirubin 0.4 mg/dL (0.2-1.3); Total Protein 7.1 g/dL (6.3-8.2)
[2022-10-06 00:09] LABS: INR 0.9 (<1.2); Partial Thromboplastin Time 22.4 sec (22.0-30.0); Prothrombin Time 9.6 sec (9.0-12.0)
[2022-10-06 00:17] LABS: Basophils % (A) 1 %; Eosinophils # (A) 0.1 k/uL (0-0.7); Eosinophils % (A) 2 %; HCT 41.9 % (34.0-46.0); HGB 14.1 gm/dL (11.4-16.0); Lymphocytes # (A) 2.1 k/uL (1.0-4.8); Lymphocytes % (A) 28 %; MCH 29.9 pg (25.0-35.0); MCHC 33.7 g/dL (31.0-37.0); MCV 88.8 fL (80.0-100.0); Mean Platelet Volume 8.4; Monocytes # (A) 0.6 k/uL (0-1.0); Monocytes % (A) 8 %; Neutrophils # (A) 4.5 k/uL (1.3-7.7); Neutrophils % (A) 59 %; Platelet Count 194 k/uL (150-450); RBC 4.72 m/uL (3.80-5.40); RDW 13.5 % (11.5-15.5); WBC 7.6 k/uL (3.8-10.6)
[2022-10-06 00:46] VITALS: BP 156/66; PULSE 71; RESP 16
[2022-10-06] MEDS ORDERED: ACET/COD 300 MG/30 MG STARTER PACK 6 TAB BTL PO STA (00:50)
[2022-10-06] MEDS ORDERED: IBUPROFEN 600 MG STARTER PACK 4 TAB BTL PO STA (00:50)
[2022-10-06] MEDS ORDERED: HYDROmorphone 0.5 MG/0.5 ML SYRINGE IVP STA (00:50)
[2022-10-06] MEDS ORDERED: DEXAMETHASONE SOD PHOSPHATE 10 MG/ML 1 ML VIAL IVP STA (00:50)
== END 2022-10-06 01:10 | disposition home or self-care (01) ==
LOC: EC 22:40
DX: G62.9 Polyneuropathy, unspecified (principal); I25.10 Atherosclerotic heart disease of native coronary artery without angina pectoris; I10 Essential (primary) hypertension; E11.9 Type 2 diabetes mellitus without complications; E07.9 Disorder of thyroid, unspecified; K21.9 Gastro-esophageal reflux disease without esophagitis; E78.5 Hyperlipidemia, unspecified; Z90.49 Acquired absence of other specified parts of digestive tract; Z90.710 Acquired absence of both cervix and uterus; Z90.89 Acquired absence of other organs; Z88.1 Allergy status to other antibiotic agents; Z88.8 Allergy status to other drugs, medicaments and biological substances; Z79.82 Long term (current) use of aspirin; Z79.890 Hormone replacement therapy; Z79.899 Other long term (current) drug therapy
CPT/HCPCS: 36415; 93005; 83880; 80053; 83735; 84100; 84484; 85025; 85610; 85730; 71045; 99284; 96374; 96375; 96361; J1100; J1885; J1170

== ENCOUNTER → 2022-12-08 | Outpatient (CLI) | payer MEDICARE ==
--- NOTE | 2022-12-11 08:02 | MM ---
Reason for Exam: Screening (asymptomatic). Last mammogram was performed 1 year(s) and 3 month(s) ago. Patient History: Menarche at age 12. First Full-Term at age 17. Left ovary removed at age 42. Right ovary removed at age 42. Hysterectomy at age 42. Postmenopausal. Estrogen for 10 years until age 62. Risk Values: Clementina 5 year model risk: 1.3%. NCI Lifetime model risk: 3.3%. Prior Study Comparison: 09/11/2013 Left Diagnostic Mammogram, [facility]. 10/20/2015 Bilateral Screening Mammogram, [facility]. 05/09/2018 Bilateral Screening Mammogram, [facility]. 09/20/2021 Bilateral Screening Mammogram, [facility]. Tissue Density: There are scattered fibroglandular densities. Findings: Analyzed By CAD. Benign-appearing vascular calcifications bilaterally as redemonstrated. There is no suspicious group of microcalcifications or new suspicious mass in either breast. Overall Assessment: Negative, BI-RAD 1 Management: Screening Mammogram of both breasts in 1 year. A clinical breast exam by your physician is recommended on an annual basis and results should be correlated with mammographic findings. Electronically signed and approved by: Sylvester Whitley M.D.
== END | disposition home or self-care (01) ==
LOC: RADMAMWWP 09:59
PROVIDERS: ATTEND Family Medicine
DX: Z12.31 Encounter for screening mammogram for malignant neoplasm of breast (principal); Z78.0 Asymptomatic menopausal state
CPT/HCPCS: 77063; 77067

== ENCOUNTER → 2023-03-13 | Outpatient (CLI) | payer MEDICARE ==
[2023-03-13 19:05] LABS: HCT 40.1 % (37.2-46.3); HGB 12.9 d/dL (12.0-15.0); MCH 29.5 pg (27.0-32.0); MCHC 32.2 d/dL (32.0-37.0); MCV 91.6 FL (80.0-97.0); Mean Platelet Volume 10.9 FL (9.5-12.2); NRBC Per 100 WBC 0 X 10*3/uL (0.00-0.01); Platelet Count 187 X 10*3/uL (140-440); RBC 4.38 X 10*6/uL (4.10-5.20); RDW 12.7 % (11.5-14.5); WBC 6.96 X 10*3/uL (4.50-10.00)
[2023-03-14 05:23] LABS: ALT 24 U/L (8-44); AST 22 U/L (13-35); Albumin 4.3 d/dL (3.8-4.9); Albumin/Globulin Ratio 2.39 Ratio (1.60-3.17); Alkaline Phosphatase 65 U/L (41-126); BUN/Creat Ratio 17.85 Ratio (12.00-20.00); Blood Urea Nitrogen 23.2 mg/dL (9.0-27.0); Carbon Dioxide 22.7 mmol/L (21.6-31.8); Chloride 102 mmol/L (96-109); Chol/HDL Ratio 2.64 Ratio; Creatine Kinase 77 U/L (26-186); Globulin 1.8 d/dL (1.6-3.3); Glucose 123 mg/dL (70-110); LDL Cholesterol,Calculated 55.8 mg/dL (0.0-131.0); Magnesium 2.3 mg/dL (1.5-2.4); Potassium 4.9 mmol/L (3.5-5.5); Sodium 137 mmol/L (135-145); Total Bilirubin 0.3 mg/dL (0.3-1.2); Total Protein 6.1 d/dL (6.2-8.2)
== END | disposition home or self-care (01) ==
LOC: LABWHC1 08:19
PROVIDERS: ATTEND Family Medicine
DX: Z51.81 Encounter for therapeutic drug level monitoring (principal); E11.69 Type 2 diabetes mellitus with other specified complication; E66.9 Obesity, unspecified; E78.5 Hyperlipidemia, unspecified; E03.9 Hypothyroidism, unspecified; Z79.899 Other long term (current) drug therapy; R79.89 Other specified abnormal findings of blood chemistry
CPT/HCPCS: 36415; 80053; 80061; 82306; 82550; 83036; 83735; 84443; 85027

== ENCOUNTER → 2023-09-26 | Outpatient (CLI) | payer MEDICARE ==
[2023-09-26 15:13] LABS: HCT 40.7 % (37.2-46.3); HGB 12.9 g/dL (12.0-15.0); MCH 29.4 pg (27.0-32.0); MCHC 31.7 g/dL (32.0-37.0); MCV 92.7 FL (80.0-97.0); NRBC Per 100 WBC 0 X 10*3/uL (0.00-0.01); Platelet Count 170 X 10*3/uL (140-440); RBC 4.39 X 10*6/uL (4.10-5.20); RDW 13.2 % (11.5-14.5)
[2023-09-26 23:37] LABS: Chol/HDL Ratio 2.73 Ratio; LDL Cholesterol,Calculated 60.6 mg/dL (0.0-131.0); T4, Free (Free Thyroxine) 1.73 ng/dL (0.80-1.80)
[2023-09-26 23:51] LABS: ALT 17 U/L (8-44); AST 28 U/L (13-35); Albumin 4.3 g/dL (3.8-4.9); Albumin/Globulin Ratio 2.26 Ratio (1.60-3.17); Alkaline Phosphatase 58 U/L (41-126); BUN/Creat Ratio 16.14 Ratio (12.00-20.00); Blood Urea Nitrogen 22.6 mg/dL (9.0-27.0); Calcium 9.1 mg/dL (8.7-10.3); Carbon Dioxide 20.1 mmol/L (21.6-31.8); Chloride 103 mmol/L (96-109); Globulin 1.9 g/dL (1.6-3.3); Glucose 115 mg/dL (70-110); Potassium 4.9 mmol/L (3.5-5.5); Sodium 138 mmol/L (135-145); Total Bilirubin 0.4 mg/dL (0.3-1.2); Total Protein 6.2 g/dL (6.2-8.2)
== END | disposition home or self-care (01) ==
LOC: LABWHC1 09:21
PROVIDERS: ATTEND Family Medicine
DX: I12.9 Hypertensive chronic kidney disease with stage 1 through stage 4 chronic kidney disease, or unspecified chronic kidney disease (principal); I25.10 Atherosclerotic heart disease of native coronary artery without angina pectoris; E11.22 Type 2 diabetes mellitus with diabetic chronic kidney disease; N18.32 Chronic kidney disease, stage 3b; E03.9 Hypothyroidism, unspecified
CPT/HCPCS: 36415; 80053; 80061; 83036; 84439; 84443; 84480; 85027

== ENCOUNTER → 2023-12-10 | Outpatient (CLI) | payer MEDICARE ==
--- NOTE | 2023-12-11 09:16 | MM ---
Reason for Exam: Screening (asymptomatic). Last screening mammogram was performed 12 month(s) ago. Patient History: Menarche at age 12. First Full-Term at age 17. Left ovary removed at age 42. Right ovary removed at age 42. Hysterectomy at age 42. Postmenopausal. Estrogen for 10 years until age 62. Risk Values: Clementina 5 year model risk: 1.3%. NCI Lifetime model risk: 3.1%. Prior Study Comparison: 05/09/2018 Bilateral Screening Mammogram, [facility]. 09/20/2021 Bilateral Screening Mammogram, [facility]. 12/08/2022 Bilateral MG 3D screening mammo w/cad, [facility]. Tissue Density: There are scattered areas of fibroglandular density. Findings: Analyzed By CAD. There is no suspicious group of microcalcifications or new suspicious mass in either breast. Benign calcifications noted. Overall Assessment: Benign, BI-RAD 2 Management: Screening Mammogram of both breasts in 1 year. . Patient should continue monthly self-breast exams. A clinical breast exam by your physician is recommended on an annual basis. This exam should not preclude additional follow-up of suspicious palpable abnormalities. Note on Clementina scores and lifetime risk: 1. A Clementina score greater than 3% is considered moderate risk. If this is the case, consider specialist referral to assess eligibility for a risk reducing agent. 2. If overall lifetime risk for the development of breast cancer is 20% or higher, the patient may qualify for future screening with alternating mammogram and breast MRI. Electronically signed and approved by: Rodolfo Garland M.D. Radiologis
== END | disposition home or self-care (01) ==
LOC: RADMAMWWP 10:02
PROVIDERS: ATTEND Family Medicine
DX: Z12.31 Encounter for screening mammogram for malignant neoplasm of breast (principal); Z78.0 Asymptomatic menopausal state
CPT/HCPCS: 77063; 77067

== ENCOUNTER → 2024-01-02 | Outpatient (CLI) | payer MEDICARE ==
[2024-01-02 11:23] LABS: HCT 40.4 % (37.2-46.3); HGB 13.5 g/dL (12.0-15.0); MCH 30.3 pg (27.0-32.0); MCHC 33.4 g/dL (32.0-37.0); MCV 90.8 FL (80.0-97.0); Mean Platelet Volume 10.9 FL (9.5-12.2); NRBC Per 100 WBC 0 X 10*3/uL (0.00-0.01); Platelet Count 182 X 10*3/uL (140-440); RBC 4.45 X 10*6/uL (4.10-5.20); RDW 13.2 % (11.5-14.5)
[2024-01-02 11:50] LABS: Chol/HDL Ratio 2.53 Ratio; LDL Cholesterol,Calculated 67.3 mg/dL (0.0-131.0); T4, Free (Free Thyroxine) 1.63 ng/dL (0.80-1.80); VLDL Calculation 16.82 mg/dL (5.00-40.00)
[2024-01-02 11:52] LABS: ALT 15 U/L (8-44); AST 27 U/L (13-35); Albumin 4.5 g/dL (3.8-4.9); Albumin/Globulin Ratio 2.05 Ratio (1.60-3.17); Alkaline Phosphatase 68 U/L (41-126); BUN/Creat Ratio 17.43 Ratio (12.00-20.00); Blood Urea Nitrogen 24.4 mg/dL (9.0-27.0); Calcium 9.1 mg/dL (8.7-10.3); Carbon Dioxide 22.3 mmol/L (21.6-31.8); Chloride 102 mmol/L (96-109); Globulin 2.2 g/dL (1.6-3.3); Glucose 114 mg/dL (70-110); Potassium 4.5 mmol/L (3.5-5.5); Sodium 136 mmol/L (135-145); Total Bilirubin 0.4 mg/dL (0.3-1.2); Total Protein 6.7 g/dL (6.2-8.2)
== END | disposition home or self-care (01) ==
LOC: LABWHC1 08:15
PROVIDERS: ATTEND Family Medicine
DX: E11.69 Type 2 diabetes mellitus with other specified complication (principal); E78.5 Hyperlipidemia, unspecified; E03.9 Hypothyroidism, unspecified
CPT/HCPCS: 36415; 80053; 80061; 83036; 84439; 84443; 84480; 85027

== ENCOUNTER → 2024-04-01 | Outpatient (CLI) | payer MEDICARE ==
[2024-04-01 18:12] LABS: ALT 18 U/L (8-44); AST 22 U/L (13-35); Albumin 4.7 g/dL (3.8-4.9); Albumin/Globulin Ratio 2.35 Ratio (1.60-3.17); Alkaline Phosphatase 62 U/L (41-126); BUN/Creat Ratio 16.13 Ratio (12.00-20.00); Blood Urea Nitrogen 24.2 mg/dL (9.0-27.0); Calcium 9.3 mg/dL (8.7-10.3); Chloride 104 mmol/L (96-109); Chol/HDL Ratio 2.61 Ratio; Glucose 107 mg/dL (70-110); LDL Cholesterol,Calculated 69.7 mg/dL (0.0-131.0); Potassium 4.5 mmol/L (3.5-5.5); Sodium 140 mmol/L (135-145); T4, Free (Free Thyroxine) 1.83 ng/dL (0.80-1.80); Total Bilirubin 0.6 mg/dL (0.3-1.2); Total Protein 6.7 g/dL (6.2-8.2); VLDL Calculation 14.94 mg/dL (5.00-40.00)
== END | disposition home or self-care (01) ==
LOC: LABWHC1 08:25
PROVIDERS: ATTEND Physician Assistant
DX: E11.59 Type 2 diabetes mellitus with other circulatory complications (principal); E11.22 Type 2 diabetes mellitus with diabetic chronic kidney disease; N18.9 Chronic kidney disease, unspecified; E03.9 Hypothyroidism, unspecified; E78.5 Hyperlipidemia, unspecified
CPT/HCPCS: 36415; 80053; 80061; 83036; 84439; 84443; 84481

== ENCOUNTER → 2024-07-30 | Outpatient (CLI) | payer MEDICARE ==
[2024-07-30 15:08] LABS: HCT 42.4 % (37.2-46.3); HGB 13.8 g/dL (12.0-15.0); MCH 30.3 pg (27.0-32.0); MCHC 32.5 g/dL (32.0-37.0); Mean Platelet Volume 11.7 FL (9.5-12.2); NRBC Per 100 WBC 0.02 X 10*3/uL (0.00-0.01); Platelet Count 157 X 10*3/uL (140-440); RBC 4.56 X 10*6/uL (4.10-5.20); RDW 13.1 % (11.5-14.5); WBC 6.78 X 10*3/uL (4.50-10.00)
[2024-07-30 15:25] LABS: ALT 16 U/L (8-44); AST 22 U/L (13-35); Albumin 4.4 g/dL (3.8-4.9); Albumin/Globulin Ratio 2.32 Ratio (1.60-3.17); Alkaline Phosphatase 59 U/L (41-126); BUN/Creat Ratio 15.29 Ratio (12.00-20.00); Blood Urea Nitrogen 21.4 mg/dL (9.0-27.0); Calcium 9.1 mg/dL (8.7-10.3); Carbon Dioxide 24.6 mmol/L (21.6-31.8); Chloride 104 mmol/L (96-109); Globulin 1.9 g/dL (1.6-3.3); Glucose 103 mg/dL (70-110); LDL Cholesterol,Calculated 63.8 mg/dL (0.0-131.0); Potassium 4.8 mmol/L (3.5-5.5); Sodium 139 mmol/L (135-145); Total Bilirubin 0.5 mg/dL (0.3-1.2); Total Protein 6.3 g/dL (6.2-8.2); VLDL Calculation 14.96 mg/dL (5.00-40.00)
== END | disposition home or self-care (01) ==
LOC: LABWHC1 08:39
PROVIDERS: ATTEND Family Medicine
DX: E11.69 Type 2 diabetes mellitus with other specified complication (principal); E03.9 Hypothyroidism, unspecified; N18.30 Chronic kidney disease, stage 3 unspecified
CPT/HCPCS: 36415; 80053; 80061; 83036; 84443; 85027

== ENCOUNTER → 2024-11-26 | Outpatient (CLI) | payer MEDICARE ==
[2024-11-26 15:46] LABS: HCT 41.9 % (37.2-46.3); HGB 13.9 g/dL (12.0-15.0); MCH 30.5 pg (27.0-32.0); MCHC 33.2 g/dL (32.0-37.0); MCV 92.1 FL (80.0-97.0); Mean Platelet Volume 11.1 FL (9.5-12.2); NRBC Per 100 WBC 0 X 10*3/uL (0.00-0.01); Platelet Count 187 X 10*3/uL (140-440); RBC 4.55 X 10*6/uL (4.10-5.20); RDW 12.7 % (11.5-14.5); WBC 7.17 X 10*3/uL (4.50-10.00)
[2024-11-26 16:08] LABS: ALT 19 U/L (8-44); AST 24 U/L (13-35); Albumin 4.6 g/dL (3.8-4.9); Albumin/Globulin Ratio 2.19 Ratio (1.60-3.17); Alkaline Phosphatase 61 U/L (41-126); Calcium 9.3 mg/dL (8.7-10.3); Carbon Dioxide 22.8 mmol/L (21.6-31.8); Chloride 105 mmol/L (96-109); Globulin 2.1 g/dL (1.6-3.3); Glucose 99 mg/dL (70-110); LDL Cholesterol,Calculated 63.4 mg/dL (0.0-131.0); Potassium 4.6 mmol/L (3.5-5.5); Sodium 141 mmol/L (135-145); Total Bilirubin 0.5 mg/dL (0.3-1.2); Total Protein 6.7 g/dL (6.2-8.2); VLDL Calculation 13.62 mg/dL (5.00-40.00)
== END | disposition home or self-care (01) ==
LOC: LABWHC1 10:18
PROVIDERS: ATTEND Physician Assistant
DX: I12.9 Hypertensive chronic kidney disease with stage 1 through stage 4 chronic kidney disease, or unspecified chronic kidney disease (principal); I25.10 Atherosclerotic heart disease of native coronary artery without angina pectoris; N18.30 Chronic kidney disease, stage 3 unspecified; E78.5 Hyperlipidemia, unspecified; E11.59 Type 2 diabetes mellitus with other circulatory complications
CPT/HCPCS: 36415; 80053; 80061; 83036; 84443; 85027

== ENCOUNTER → 2025-03-04 | Outpatient (CLI) | payer MEDICARE ==
[2025-03-04 15:57] LABS: HCT 39.4 % (37.2-46.3); HGB 12.7 g/dL (12.0-15.0); MCH 29.8 pg (27.0-32.0); MCHC 32.2 g/dL (32.0-37.0); MCV 92.5 FL (80.0-97.0); Mean Platelet Volume 11.4 FL (9.5-12.2); NRBC Per 100 WBC 0 X 10*3/uL (0.00-0.01); Platelet Count 175 X 10*3/uL (140-440); RBC 4.26 X 10*6/uL (4.10-5.20); RDW 12.9 % (11.5-14.5); WBC 6.44 X 10*3/uL (4.50-10.00)
[2025-03-04 16:15] LABS: Chol/HDL Ratio 2.47 Ratio; VLDL Calculation 12.64 mg/dL (5.00-40.00)
[2025-03-04 16:16] LABS: ALT 21 U/L (8-44); AST 27 U/L (13-35); Albumin 4.4 g/dL (3.8-4.9); Albumin/Globulin Ratio 2.44 Ratio (1.60-3.17); Alkaline Phosphatase 53 U/L (41-126); BUN/Creat Ratio 17.69 Ratio (12.00-20.00); Calcium 9.2 mg/dL (8.7-10.3); Carbon Dioxide 23.1 mmol/L (21.6-31.8); Chloride 104 mmol/L (96-109); Globulin 1.8 g/dL (1.6-3.3); Glucose 103 mg/dL (70-110); LDL Cholesterol,Calculated 61.8 mg/dL (0.0-131.0); Potassium 4.9 mmol/L (3.5-5.5); Sodium 138 mmol/L (135-145); Total Bilirubin 0.5 mg/dL (0.3-1.2); Total Protein 6.2 g/dL (6.2-8.2)
[2025-03-04 16:46] LABS: Thyroid Peroxidase Antibodies 11.8 U/mL (0.0-33.0)
== END | disposition home or self-care (01) ==
LOC: LABWHC1 08:41
PROVIDERS: ATTEND Physician Assistant
DX: E11.59 Type 2 diabetes mellitus with other circulatory complications (principal); E78.5 Hyperlipidemia, unspecified; E03.9 Hypothyroidism, unspecified; N18.32 Chronic kidney disease, stage 3b
CPT/HCPCS: 36415; 80053; 80061; 83036; 84436; 84443; 84481; 85027; 86376; 86800